=== PATIENT | male | born 1950 | race Caucasian/White ===

== ENCOUNTER 2020-03-26 17:28 | Inpatient (IN) | payer MEDICARE, SELFPAY ==
[2020-03-26] VITALS (7 sets, daily range): BP systolic 117–145; BP diastolic 46–61; PULSE 76–87; RESP 17–23; TEMP 37.8–38.9; O2SAT 96–99; BMI 27.5
--- NOTE | ~2020-03-26 | XR_ITS ---
EXAMINATION: XR chest 1V portable EXAM DATE: 03/26/2020 18:12 INDICATION: Fever, cough, chills. TECHNIQUE: Portable AP frontal chest x-ray was obtained. Comparison is made to prior examination from 09/28/2012. FINDINGS: Sternotomy wires are present without findings to suggest sternal dehiscence. Moderate chron ic appearing hyperinflation. There is some fat within the major fissures confirmed on prior lateral p rojection, probably causing the small region of left hemidiaphragm silhouetting. No acute airspace di sease suspected. There are no pleural effusions. Cardiac silhouette is prominent but magnified on th is AP technique. There is no pneumothorax suspected. The bones and soft tissues are unremarkable. IMPRESSION: No acute cardiopulmonary findings. Reviewed, dictated and finalized at location A.
--- NOTE | 2020-03-26 17:45 | ECG_ITS ---
Measurements Intervals [place] Rate: 79 P: -77 NH: 121 QRS: 40 QRSD: 93 T: 61 QT: 365 QTc: 420 Interpretive Statements ECTOPIC ATRIAL RHYTHM NONSPECIFIC ST & T-WAVE ABNORMALITY- ANTEROLAT/HIGH LAT LEADS BASELINE ARTIFACT- III, V2-V3 ABNORMAL ECG Electronically Signed On 03-27-2020 6:59:41 CDT by Donte Campbell D.O.
[2020-03-26 17:54] LABS: Basophils Absolute Auto 0.1 K/mm3 (0.0-0.1); Basophils Percent Auto 0.3 % (0.2-1.2); Eosinophils Absolute Auto 0.3 K/mm3 (0-0.3); Eosinophils Percent Auto 1.5 % (0-4.4); Hematocrit 44.1 % (42.0-52.0); Hemoglobin 15.4 g/dL (14.0-18.0); Immature Granulocyte Absolute 0.09 K/mm3 (0.00-0.031); Immature Granulocyte Percent A 0.5 % (0-0.5); Lymphocytes Absolute Auto 1.44 K/mm3 (0.9-3.2); Lymphocytes Percent Auto 7.4 % (18.3-44.2); Mean Corpuscular HGB Conc 34.9 g/dl (32-36); Mean Corpuscular Hemoglobin 30.6 pg (26-34); Mean Corpuscular Volume 87.5 fl (80-100); Mean Platelet Volume 10.6 fl (7.4-10.4); Monocytes Percent Auto 10.4 % (2.6-8.5); Neutrophils Absolute Auto 15.6 K/mm3 (1.3-6.7); Neutrophils Percent Auto 79.9 % (45.5-73.1); Platelet Count Result 189 k/mm3 (150-375); Red Blood Count 5.04 M/mm3 (4.6-6.20); Red Cell Distribution Width 13.2 % (11.5-14.5); White Blood Count 19.5 K/mm3 (4.5-10.0)
--- NOTE | 2020-03-26 17:58 | ED.SOB ---
HPI - SOB/Dyspnea General Chief Complaint: Shortness of Breath/Dyspnea Stated Complaint: Fever/Sore Throat/Shaking Time Seen by Provider: 03/26/20 17:34 Source: patient Mode of arrival: ambulatory Limitations: no limitations History of Present Illness HPI Narrative: This patient is a 70 year old male with history of HTN, hyperlipidemia and BPH who presents for evaluation of 3 days ago cough, fever, myalgia and sore throat. He reports his fever was 99F and today he developed a fever of 103. He came to ER for evaluation since his fever was so high. He took tylenol before coming to the ER. He denies sob or chest pain. He also reports severe sore throat . He denies any sick contacts. Related Data Home Medications Medication Instructions Recorded Confirmed aspirin 81 mg PO DAILY 03/26/20 finasteride 5 mg PO DAILY 03/26/20 lisinopril 40 mg PO DAILY 03/26/20 nifedipine 60 mg PO DAILY 03/26/20 rosuvastatin 40 mg PO DAILY 03/26/20 Allergies Allergy/AdvReac Type Severity Reaction Status Date / Time Penicillins Allergy Unknown Verified 05/22/17 14:52 Review of Systems Review of Systems: All systems reviewed & are unremarkable except as noted in HPI and below Constitutional: Constitutional: Reports chills and Reports fever(s) ENT: Reports dysphagia and Reports sore throat Cardiovascular: Cardiovascular: Denies chest pain Respiratory: Respiratory: Reports cough and Denies dyspnea Gastrointestinal: Gastrointestinal: Denies abdominal pain, Denies nausea and Denies vomiting PMFSH Past Medical History Medical History Hyperlipidemia Hypertension Surgical History Surgical History Hx of CABG Family History Family History Mother Family history of malignant neoplasm Social History Social History (Updated 03/26/20 @ 22:01 by Johnson Aviles MD) Smoking status: Current every day smoker Alcohol intake: current Gender identity (if verbalized by the patient): Male Exam Const: General: no acute distress, alert and diaphoretic Orientation/consciousness: patient oriented x3 HENMT: Head: normocephalic and atraumatic Ears: TM's normal bilaterally Face and sinus: face symmetric Mouth: Yes lip normal and Yes Abnormal oral and palatal mucosa present erythematous and white patches Throat: uvula midline and posterior oropharynx abnormal Eyes: Pupils: Equal, round and reactive pupils present EOM: EOMs intact bilaterally Chest: Chest palpation & inspection: normal inspection of the chest Resp: Effort & Inspection: normal respiratory effort and no retractions Auscultation: clear to auscultation bilaterally Cardio: Rate: regular rate Rhythm: regular rhythm Heart sounds: no murmurs GI: GI Palp: Yes Soft to palpation, No Tenderness to palpation present (GI), No Guarding due to palpation present (GI), No Rigid due to palpation and No Hernia present Back/Spine/Pelvis: Back: no CVA tenderness Skin: General skin exam: normal color Rashes: no rashes Neuro: General: patient oriented x3, moves all extremities and CN's II-XI intact bilaterally Psych: Mental Status: mental status grossly normal Course Vital Signs Vital signs: Vital Signs Temperature 100.8 F H 03/26/20 17:33 Pulse Rate 85 03/26/20 17:33 Respiratory Rate 23 H 03/26/20 17:33 Blood Pressure 118/61 03/26/20 17:33 Pulse Oximetry 97 03/26/20 17:33 Temperature 102.0 F H 03/26/20 22:32 Pulse Rate 87 03/26/20 21:13 Respiratory Rate 20 03/26/20 21:13 Blood Pressure 145/59 H 03/26/20 21:13 Pulse Oximetry 96 03/26/20 21:13 MDM - SOB/Dyspnea Lab Data Attestation: I reviewed the patient's lab results. Result diagrams: 03/26/20 17:47 03/26/20 17:47 Labs: Lab Results 03/26/20 03/26/20 03/26/20 Range/Units 1
[2020-03-26 18:06] LABS: INR 1.1; Prothrombin Time 14.3 Seconds (11.1-14.7)
[2020-03-26 18:07] LABS: Lactic Acid Reflex 2.3 mmol/L (0.7-2.1); Partial Thromboplastin Time 33.3 SECONDS (22.3-36.8)
[2020-03-26 18:13] LABS: Alanine Aminotransferase 14 U/L (4-50); Albumin Level 4.1 g/dL (3.5-5.1); Alkaline Phosphatase 83 U/L (38-126); Anion Gap 12 mmol/L (8-16); Aspartate Amino Transferase 17 U/L (17-59); Bilirubin,Total 0.8 mg/dL (0.2-1.3); Blood Urea Nitrogen 11 mg/dL (9-20); Calcium 8.7 mg/dL (8.4-10.2); Carbon Dioxide 21 mmol/L (22-30); Chloride 101 mmol/L (98-107); Estimated CRCL calculation 68 ml/min; Estimated Glomerular Filt Rate > 60; Glucose 152 mg/dL (75-110); Potassium 3.6 mmol/L (3.4-5.0); Sodium 134 mmol/L (137-145)
[2020-03-26 18:15] LABS: NT Pro B Type Natriuretic Pept 416 PG/ML (5-100)
[2020-03-26 18:25] LABS: Add Urine Microscopic? YES; Appearance Urine Cloudy (Clear); Bacteria Urine 1+ /hpf; Bilirubin Urine Negative (Negative); Blood Urine 2+ (Negative); Color Urine Yellow (Yellow); Glucose Urine UA Negative (Negative); Ketones Urine Negative (Negative); Leukocyte Esterase Ur 3+ LEU/UL (Negative); Mucus Urine Rare /lpf; Nitrate Urine Negative (Negative); Protein Urine 1+ mg/dL (Negative); Specific Grav Ur 1.013 (1.001-1.035); Squamous Epithelial Cell Urine Rare /hpf (Few); Urobilinogen Urine Negative mg/dL (<2.0); WBC Urine >75 /hpf
[2020-03-26 18:28] LABS: CRP 21.5 mg/dL (<1.0)
--- NOTE | 2020-03-26 19:16 | PHAR ---
PENICILLIN RASH YEARS AGO OKED [id number]
[2020-03-26] MEDS: FLUCONAZOLE 100 MG TABLET 200 MG PO (19:43)
[2020-03-26] MEDS: LACTATED RINGERS 1,000 ML 999 ML IV CONT (20:05)
[2020-03-26 20:52] LABS: Reflex Lactic Acid Yes or No Add Lactic
--- NOTE | 2020-03-26 21:00 | ADMGEN ---
This patient, Cain Agarwal, was admitted to [facility] Surg Room 325-01. Patient/family oriented to hospital policies and general routines including ID bracelet, bed and alarms, visiting hours, pain management, procedures, bathroom and other care routines, personal items, smoking policy, room service/diet, and visiting hours. Valuables list has been completed. Information on how to activate the Rapid Response Team has been discussed. Patient/Family are encouraged to report perceived risks to care and to ask questions if they do not understand what they are told or what they should do.
--- NOTE | 2020-03-26 21:45 | PM.IMHP ---
H&P: HPI History of Present Illness Date/Time: 03/26/20 21:45 Chief complaint: Sepsis,UTI,PUI COVID Narrative: This is a pleasant 70 year old male who is a tobacco smoker with history of HTN and hyperlipidemia who presented to the hospital with a complaint of three days of cough, fever, sore throat, and malaise. Today he started to develop a fever up to 103 degrees F and mild shortness of breath. He has had a sore throat and has had difficulty swallowing. He denies any sick contacts and apparently his at home is not ill. He denies any chest pain, palpitations, abdominal pain, nausea, vomiting, dysuria, hematuria, diarrhea or rectal bleeding. The patient was evaluated in the ER tonight and found to be severely septic with fever, leukocytosis of 19,500 and an elevated lactic acid of 2.3. Urinalysis was suspicious for a possible UTI. The patient was treated with a one liter RL fluid bolus and given antibiotics. He was swabbed for COVID-19. No other complaints. Review of Systems Review of Systems: All systems reviewed & are unremarkable except as noted in HPI and below PMFSH Past Medical History Medical History Hyperlipidemia Hypertension Surgical History Surgical History Hx of CABG Family History Family History Mother Family history of malignant neoplasm Social History Social History Smoking packs per day: 1 Smoking cigarettes per day: 20.0 Years smoked: 60 Smoking pack-years: 60.00 Smoking status: Heavy tobacco smoker Tobacco type: cigarettes Alcohol intake: former Drinks per week: 10 Substance use: never Gender identity (if verbalized by the patient): Male Spiritual care concerns: No Meds Home Medications and Allergies Home Medications Medication Instructions Recorded Confirmed Type aspirin 81 mg PO DAILY 03/26/20 03/27/20 History finasteride 5 mg PO DAILY 03/26/20 03/27/20 History lisinopril 40 mg PO DAILY 03/26/20 03/27/20 History nifedipine 60 mg PO DAILY 03/26/20 03/27/20 History rosuvastatin 40 mg PO DAILY 03/26/20 03/27/20 History Allergies Allergy/AdvReac Type Severity Reaction Status Date / Time Penicillins Allergy Unknown Verified 05/22/17 14:52 Vital Signs Vital Signs - 24 hr 03/26/20 17:33 03/26/20 17:40 03/26/20 19:01 Temperature 38.2 C H Pulse Rate 85 84 76 Respiratory Rate 23 H 20 Blood Pressure 118/61 117/46 L Pulse Oximetry 97 96 03/26/20 19:31 03/26/20 20:58 Temperature 37.8 C H Pulse Rate 77 84 Respiratory Rate 20 17 Blood Pressure 124/47 L 123/49 L Pulse Oximetry 96 99 Exam Const: General: cooperative, alert, awake, ill appearing and other (coughing++ ) Nutritional Appearance: well nourished Orientation/consciousness: patient oriented x3 HENMT: Head: normal to inspection General nose exam: Normal external nose present Face and sinus: normal facial exam Mouth: Yes Normal oral and palatal mucosa present and No oropharynx normal (thrush++ ) Eyes: Pupils: Equal, round and reactive pupils present EOM: EOMs intact bilaterally Neck: Neck: supple and no JVD Thyroid: thyroid normal Lymphatic: lymphadenopathy not noted Resp: Effort & Inspection: Actively coughing and tachypneic Auscultation: crackles diffuse and rales Cardio: Rate: regular rate Rhythm: regular rhythm Heart sounds: no murmurs GI: Inspection: normal to inspection Auscultation: normal bowel sounds Skin: General skin exam: normal color and no rashes or lesions noted Neuro: General: patient oriented x3 Cranial nerves: Yes CN's II-XII intact bilaterally and Yes Equal, round and reactive pupils present Speech: normal speech Motor exam (neuro): 5/5 motor strength present throughout Sensory Exam: normal sensation Extrem: General: normal
[2020-03-26 21:51] LABS: Lactic Acid 4.1 mmol/L (0.7-2.1)
[2020-03-26] MEDS: LACTATED RINGERS 1,000 ML 100 ML IV CONT (22:30)
[2020-03-26] MEDS: NYSTATIN 100,000 UNITS/ML SUSP 5 ML ORAL.SUSP PO (22:33)
[2020-03-27] VITALS (11 sets, daily range): BP systolic 122–150; BP diastolic 48–68; PULSE 70–84; RESP 16–20; TEMP 36.2–38.5; O2SAT 93–96
[2020-03-27 00:43] LABS: Influenza Control Positive
[2020-03-27 05:42] LABS: Basophils Percent Auto 0.2 % (0.2-1.2); Eosinophils Percent Auto 0.1 % (0-4.4); Hematocrit 38.3 % (42.0-52.0); Hemoglobin 13.4 g/dL (14.0-18.0); Immature Granulocyte Absolute 0.09 K/mm3 (0.00-0.031); Immature Granulocyte Percent A 0.4 % (0-0.5); Lymphocytes Absolute Auto 1.24 K/mm3 (0.9-3.2); Lymphocytes Percent Auto 6.1 % (18.3-44.2); Mean Corpuscular Hemoglobin 30.3 pg (26-34); Mean Corpuscular Volume 86.7 fl (80-100); Mean Platelet Volume 10.3 fl (7.4-10.4); Monocytes Absolute Auto 2.3 K/mm3 (0.1-0.6); Monocytes Percent Auto 11.4 % (2.6-8.5); Neutrophils Absolute Auto 16.5 K/mm3 (1.3-6.7); Neutrophils Percent Auto 81.8 % (45.5-73.1); Platelet Count Result 175 k/mm3 (150-375); Red Blood Count 4.42 M/mm3 (4.6-6.20); Red Cell Distribution Width 12.8 % (11.5-14.5); White Blood Count 20.2 K/mm3 (4.5-10.0)
[2020-03-27] MEDS: ALBUTEROL SULFATE (*SP) AEROSOL 1 PUFF 2 PUFF INHALATION ×4 (07:30→19:37)
[2020-03-27 07:48] LABS: Alanine Aminotransferase 10 U/L (4-50); Albumin Level 3.4 g/dL (3.5-5.1); Alkaline Phosphatase 73 U/L (38-126); Anion Gap 6 mmol/L (8-16); Aspartate Amino Transferase 23 U/L (17-59); Bilirubin,Total 0.6 mg/dL (0.2-1.3); Blood Urea Nitrogen 12 mg/dL (9-20); Calcium 8.2 mg/dL (8.4-10.2); Carbon Dioxide 21 mmol/L (22-30); Chloride 103 mmol/L (98-107); Estimated CRCL calculation 94 ml/min; Estimated Glomerular Filt Rate > 60; Glucose 125 mg/dL (75-110); Potassium 3.7 mmol/L (3.4-5.0); Sodium 130 mmol/L (137-145)
[2020-03-27 08:16] LABS: Lactic Acid Reflex 3.9 mmol/L (0.7-2.1)
[2020-03-27] MEDS: NYSTATIN 100,000 UNITS/ML SUSP 5 ML ORAL.SUSP PO ×4 (09:08→21:11)
[2020-03-27] MEDS: ROSUVASTATIN 10 MG TABLET 40 MG PO (09:09)
[2020-03-27] MEDS: NIFEdipine 30 MG TAB.ER.24 60 MG PO (09:09)
[2020-03-27] MEDS: FINASTERIDE 5 MG TABLET PO (09:10)
[2020-03-27] MEDS: lisinopriL 20 MG TABLET 40 MG PO (09:11)
[2020-03-27 10:59] LABS: Reflex Lactic Acid Yes or No Add Lactic
[2020-03-27] MEDS: ASPIRIN 81 MG ENTERIC TABLET PO (11:05)
[2020-03-27] MEDS: LACTATED RINGERS 1,000 ML 100 ML IV CONT ×2 (11:06→21:11)
[2020-03-27 11:41] LABS: Lactic Acid 0.9 mmol/L (0.7-2.1)
[2020-03-27 14:05] LABS: SARS-CoV-2 RNA PCR Negative
[2020-03-27] MEDS: ALBUTEROL SULFATE (*SP) INHALER 1 PUFF (14:30)
--- NOTE | 2020-03-27 14:32 | PM.IMPN ---
Progress Note: A&P Assessment and Plan (1) Severe sepsis: Code(s): A41.9 - Sepsis, unspecified organism; R65.20 - Severe sepsis without septic shock Status: Acute Assessment and Plan: w/ fever, leukocytosis and elevated lactic acid. Source of sepsis may be respiratory vs. urinary. Lactic acid has resolved. WBC 20.2k. Continues to have low grade fever. Patient feels better today. Monitor Is and Os, urine output. vital signs closely. Continue IV antibiotics for presumed UTI. blood and urine cultures pending. (2) Abnormal urinalysis: Code(s): R82.90 - Unspecified abnormal findings in urine Status: Acute Assessment and Plan: r/o UTI. UA suspicous for UTI. Patient noting dysuria and cloudy urine Continue IV Rocephin Urine culture pending. Tailor antibiotics to culture (3) Leukocytosis: Qualifiers: Leukocytosis type: unspecified Qualified Code(s): D72.829 - Elevated white blood cell count, unspecified Code(s): D72.829 - Elevated white blood cell count, unspecified Status: Acute Assessment and Plan: May be secondary to acute UTI vs. respiratory illness. Monitor CBCd. (4) Suspected COVID-19 virus infection: Code(s): Z20.828 - Contact with and (suspected) exposure to other viral communicable diseases Status: Ruled-out Assessment and Plan: COVID testing negative. D/c droplet isolation. (5) Thrush: Code(s): B37.0 - Candidal stomatitis Status: Acute Assessment and Plan: Evident on exam Nystatin swish and swallow QID. Likely continue 7-14 depending on improvement Monitor closely (6) Hypertension: Qualifiers: Hypertension type: unspecified Qualified Code(s): I10 - Essential (primary) hypertension Code(s): I10 - Essential (primary) hypertension Status: Chronic Assessment and Plan: BP 130s sys this afternoon Continue lisinopril and nifedipine. Monitor (7) Hyperlipidemia: Qualifiers: Hyperlipidemia type: unspecified Qualified Code(s): E78.5 - Hyperlipidemia, unspecified Code(s): E78.5 - Hyperlipidemia, unspecified Status: Chronic Assessment and Plan: LFTs WNL Continue Crestor (8) Prediabetes: Code(s): R73.03 - Prediabetes Status: Acute Assessment and Plan: A1c 6.0; technically prediabetic Will need f/u with PCP Will encourage healthy lifestyle choices including diet and exercise Subjective Date/time seen: 03/27/20 14:32 Interval history: Patient is a 70 yo M with history of current tobacco abuse, HLD, and HTN who is here for severe sepsis with likely respiratory vs urinary source. Patient states he feels better today. Notes that his cough, subjective fever, and SOB have improved. He notes that he is spitting up white stuff particularly when he eats something, stating almost like it gets stuck . He notes his appetite has not been ideal the past week or so given his illness. He notes that he has some dysuria, usually when he wakes up in the morning, then goes away during the day; this as been going on for several days as well. Notes cloudy urine yesterday, but this has improved. No other complaints. Denies current subjective f/c/s, headaches, dizziness, lightheadedness, changes in v/h, cp/palpitations, current SOB, n/v/d/c, abd pain, changes in BMs, hematuria, calf pain/swelling. Review of Systems Review of Systems: All systems reviewed & are unremarkable except as noted in HPI and below Exam Narrative: Exam Narrative: Patient lying in bed supine in in no acute distress Const: General: cooperative, comfortable, well
--- NOTE | 2020-03-27 14:48 | PC.NURSE ---
Aaron GOLDMAN , aware covid test is negative. Isolation discontinued.
[2020-03-28 06:00] VITALS: BP 120/54; PULSE 67; RESP 20; TEMP 37.6; O2SAT 95
[2020-03-28 07:26] LABS: Anion Gap 7 mmol/L (8-16); Blood Urea Nitrogen 9 mg/dL (9-20); Calcium 8.4 mg/dL (8.4-10.2); Carbon Dioxide 23 mmol/L (22-30); Chloride 105 mmol/L (98-107); Estimated CRCL calculation 94 ml/min; Estimated Glomerular Filt Rate > 60; Glucose 126 mg/dL (75-110); Magnesium 2.3 mg/dL (1.6-2.3); Potassium 3.2 mmol/L (3.4-5.0); Sodium 135 mmol/L (137-145)
[2020-03-28] MEDS: LACTATED RINGERS 1,000 ML 100 ML IV CONT ×2 (07:37→20:14)
[2020-03-28] MEDS: ALBUTEROL SULFATE (*SP) AEROSOL 1 PUFF 2 PUFF INHALATION ×2 (08:12→12:11)
[2020-03-28] MEDS: POTASSIUM CHLORIDE 20 MEQ TABLET 60 MEQ PO (09:06)
[2020-03-28] MEDS: ROSUVASTATIN 10 MG TABLET 40 MG PO (09:06)
[2020-03-28] MEDS: lisinopriL 20 MG TABLET 40 MG PO (09:14)
[2020-03-28] MEDS: ENOXAPARIN 40 MG/0.4 ML SYRINGE SUB-Q (09:14)
[2020-03-28] MEDS: FINASTERIDE 5 MG TABLET PO (09:15)
[2020-03-28] MEDS: NYSTATIN 100,000 UNITS/ML SUSP 5 ML ORAL.SUSP PO ×4 (09:15→20:34)
[2020-03-28] MEDS: ASPIRIN 81 MG ENTERIC TABLET PO (09:15)
[2020-03-28] MEDS: NIFEdipine 30 MG TAB.ER.24 60 MG PO (09:15)
[2020-03-28 10:13] LABS: Basophils Absolute Auto 0.1 K/mm3 (0.0-0.1); Basophils Percent Auto 0.3 % (0.2-1.2); Eosinophils Absolute Auto 0.1 K/mm3 (0-0.3); Eosinophils Percent Auto 0.3 % (0-4.4); Hematocrit 38.6 % (42.0-52.0); Hemoglobin 13.2 g/dL (14.0-18.0); Immature Granulocyte Absolute 0.08 K/mm3 (0.00-0.031); Immature Granulocyte Percent A 0.5 % (0-0.5); Lymphocytes Absolute Auto 1.86 K/mm3 (0.9-3.2); Lymphocytes Percent Auto 10.6 % (18.3-44.2); Mean Corpuscular HGB Conc 34.2 g/dl (32-36); Mean Corpuscular Hemoglobin 29.9 pg (26-34); Mean Corpuscular Volume 87.5 fl (80-100); Mean Platelet Volume 11.4 fl (7.4-10.4); Monocytes Absolute Auto 2.3 K/mm3 (0.1-0.6); Monocytes Percent Auto 12.9 % (2.6-8.5); Neutrophils Absolute Auto 13.3 K/mm3 (1.3-6.7); Neutrophils Percent Auto 75.4 % (45.5-73.1); Platelet Count Result 200 k/mm3 (150-375); Red Blood Count 4.41 M/mm3 (4.6-6.20); Red Cell Distribution Width 13.2 % (11.5-14.5); White Blood Count 17.6 K/mm3 (4.5-10.0)
--- NOTE | 2020-03-28 14:47 | PM.IMPN ---
Progress Note: A&P Assessment and Plan (1) Severe sepsis: Code(s): A41.9 - Sepsis, unspecified organism; R65.20 - Severe sepsis without septic shock Status: Acute Assessment and Plan: w/ fever, leukocytosis and elevated lactic acid. Source of sepsis may be respiratory vs. urinary. Lactic acid has resolved. WBC 17.6k. Afebrile since yesterday evening. Significant clinical improvement. blood and urine cultures NGTD x 2 after 2 days. UCx shows growth of strep viridans, although patient has noticed significant improvement in his urinary symptoms. Respiratory symptoms have also improved. Monitor for improvement Continue IV antibiotics for presumed UTI and/or CAP Consider discharge in 1-2 days on PO antibiotics if continued clinical improvement (2) CAP (community acquired pneumonia): Code(s): J18.9 - Pneumonia, unspecified organism Status: Acute Assessment and Plan: CXR unremarkable for acute cardiopulmonary findings, however, exam suggestive of pneumonia on right side. He has shown improvement in respiratory symptoms. Will add azithromycin to Rocephin to empirically treat CAP Add Mucinex to regimen Monitor for improvement (3) Abnormal urinalysis: Code(s): R82.90 - Unspecified abnormal findings in urine Status: Acute Assessment and Plan: UA and history suspicious for UTI, however UCx shows growth of strep viridans. Patient noting significant improvement in symptoms with IV antibiotics Continue IV Rocephin for empiric treatment of UTI (4) Leukocytosis: Qualifiers: Leukocytosis type: unspecified Qualified Code(s): D72.829 - Elevated white blood cell count, unspecified Code(s): D72.829 - Elevated white blood cell count, unspecified Status: Acute Assessment and Plan: May be secondary to acute UTI vs. CAP. Improving Monitor CBCd. (5) Thrush: Code(s): B37.0 - Candidal stomatitis Status: Acute Assessment and Plan: Evident on exam. Patient has noticed significant improvement in his dysphagia. Nystatin swish and swallow QID. Likely continue 7-14 depending on improvement Monitor closely (6) Hypertension: Qualifiers: Hypertension type: unspecified Qualified Code(s): I10 - Essential (primary) hypertension Code(s): I10 - Essential (primary) hypertension Status: Chronic Assessment and Plan: BP 120s sys this afternoon Continue lisinopril and nifedipine. Monitor (7) Hyperlipidemia: Qualifiers: Hyperlipidemia type: unspecified Qualified Code(s): E78.5 - Hyperlipidemia, unspecified Code(s): E78.5 - Hyperlipidemia, unspecified Status: Chronic Assessment and Plan: LFTs WNL Continue Crestor (8) Prediabetes: Code(s): R73.03 - Prediabetes Status: Acute Assessment and Plan: A1c 6.0; technically prediabetic Will need f/u with PCP. Discussed this in detail with patient and during stay Encouraged healthy lifestyle choices including diet and exercise Subjective Date/time seen: 03/28/20 14:47 Interval history: Patient is a 70 yo M with history of current tobacco abuse, HLD, and HTN who is here for severe sepsis with likely respiratory vs urinary source. Patient states he feels [facility] better today. His cough and SOB has improved. His dysphagia has also improved and he has gotten his appetite back. He denies any subjective fevers today. He also notes some lower abdomen pressure has improved significantly since starting the antibiotics. He thinks his urine has cleared up significantly as well. No other complaints. Denies current subjective f/c/s
[2020-03-28 15:18] VITALS: BP 130/54; PULSE 75; RESP 14; TEMP 37.5; O2SAT 97
[2020-03-28] MEDS: guaiFENesin 12 HR 600 MG TABCR PO (20:34)
[2020-03-28 22:00] VITALS: BP 119/47; PULSE 70; RESP 16; TEMP 37.2; O2SAT 99
[2020-03-29 06:00] VITALS: BP 109/68; PULSE 63; RESP 16; TEMP 36.6; O2SAT 97
[2020-03-29] MEDS: LACTATED RINGERS 1,000 ML 100 ML IV CONT (06:05)
[2020-03-29 07:15] LABS: Basophils Absolute Auto 0.1 K/mm3 (0.0-0.1); Basophils Percent Auto 0.4 % (0.2-1.2); Eosinophils Absolute Auto 0.2 K/mm3 (0-0.3); Hematocrit 36.7 % (42.0-52.0); Hemoglobin 12.6 g/dL (14.0-18.0); Immature Granulocyte Percent A 0.9 % (0-0.5); Lymphocytes Absolute Auto 1.94 K/mm3 (0.9-3.2); Lymphocytes Percent Auto 16.9 % (18.3-44.2); Mean Corpuscular HGB Conc 34.3 g/dl (32-36); Mean Corpuscular Hemoglobin 29.9 pg (26-34); Mean Platelet Volume 10.4 fl (7.4-10.4); Monocytes Absolute Auto 1.4 K/mm3 (0.1-0.6); Neutrophils Absolute Auto 7.8 K/mm3 (1.3-6.7); Neutrophils Percent Auto 67.8 % (45.5-73.1); Platelet Count Result 213 k/mm3 (150-375); Red Blood Count 4.22 M/mm3 (4.6-6.20); Red Cell Distribution Width 13.2 % (11.5-14.5); White Blood Count 11.5 K/mm3 (4.5-10.0)
[2020-03-29 07:29] LABS: Anion Gap 5 mmol/L (8-16); Blood Urea Nitrogen 7 mg/dL (9-20); Calcium 8.2 mg/dL (8.4-10.2); Carbon Dioxide 23 mmol/L (22-30); Chloride 109 mmol/L (98-107); Estimated CRCL calculation 108 ml/min; Estimated Glomerular Filt Rate > 60; Glucose 110 mg/dL (75-110); Magnesium 2.3 mg/dL (1.6-2.3); Potassium 3.7 mmol/L (3.4-5.0); Sodium 137 mmol/L (137-145)
[2020-03-29] MEDS: lisinopriL 20 MG TABLET 40 MG PO (08:30)
[2020-03-29] MEDS: ASPIRIN 81 MG ENTERIC TABLET PO (08:30)
[2020-03-29] MEDS: guaiFENesin 12 HR 600 MG TABCR PO (08:30)
[2020-03-29] MEDS: NYSTATIN 100,000 UNITS/ML SUSP 5 ML ORAL.SUSP PO (08:30)
[2020-03-29] MEDS: ENOXAPARIN 40 MG/0.4 ML SYRINGE SUB-Q (08:30)
[2020-03-29] MEDS: ROSUVASTATIN 10 MG TABLET 40 MG PO (08:30)
[2020-03-29] MEDS: FINASTERIDE 5 MG TABLET PO (08:30)
[2020-03-29] MEDS: NIFEdipine 30 MG TAB.ER.24 60 MG PO (08:31)
--- NOTE | 2020-03-29 09:15 | PM.DS ---
DS: Admitting Diagnosis Admitting Diagnosis Admitting Diagnosis: Sepsis,UTI,PUI COVID DS: Discharge Diagnosis Discharge Diagnosis (1) Severe sepsis: Code(s): A41.9 - Sepsis, unspecified organism; R65.20 - Severe sepsis without septic shock Status: Acute Assessment and Plan: w/ fever, leukocytosis and elevated lactic acid. Source of sepsis may be respiratory vs. urinary. Lactic acid has resolved. WBC 11.5k. Afebrile since 03/27. Significant clinical improvement. blood and urine cultures NGTD x 2 after 2 days. UCx shows growth of strep viridans, although patient has noticed significant improvement in his urinary symptoms. Patient has had significant clinical improvement over the past 2 nights. Feels much better today and states he has slept better than he has had in years. Monitor for improvement Start PO antibiotics for presumed UTI and/or CAP. See below D/c today (2) CAP (community acquired pneumonia): Code(s): J18.9 - Pneumonia, unspecified organism Status: Acute Assessment and Plan: CXR unremarkable for acute cardiopulmonary findings, however, exam suggestive of pneumonia on right side. He has shown improvement in respiratory symptoms again today Will do azithromycin PO daily and PO cefdinir both through 04/01 to treat suspected CAP Instructed him to continue taking OTC Mucinex after discahrge F/u with PCP (3) Acute UTI: Code(s): N39.0 - Urinary tract infection, site not specified Status: Acute Assessment and Plan: UA and history suspicious for UTI, however UCx shows growth of strep viridans. Patient noting significant improvement in urinary symptoms with antibiotics since admission Will do Cefdinir through 04/01 to treat suspected UTI F/u with PCP (4) Leukocytosis: Qualifiers: Leukocytosis type: unspecified Qualified Code(s): D72.829 - Elevated white blood cell count, unspecified Code(s): D72.829 - Elevated white blood cell count, unspecified Status: Acute Assessment and Plan: May be secondary to acute UTI vs. CAP. Improving to 11.5k today Monitor CBC in 1 week F/u with PCP (5) Thrush: Code(s): B37.0 - Candidal stomatitis Status: Acute Assessment and Plan: Evident on exam. Patient has noticed significant improvement in his dysphagia again today. Also has gotten his appetite back Nystatin swish and swallow QID through 04/08 or until specified by PCP F/u with PCP in 1 week Consider GI referral if not improveing (6) Hypertension: Qualifiers: Hypertension type: unspecified Qualified Code(s): I10 - Essential (primary) hypertension Code(s): I10 - Essential (primary) hypertension Status: Chronic Assessment and Plan: BP 100s sys this morning Continue lisinopril and nifedipine. Monitor (7) Hyperlipidemia: Qualifiers: Hyperlipidemia type: unspecified Qualified Code(s): E78.5 - Hyperlipidemia, unspecified Code(s): E78.5 - Hyperlipidemia, unspecified Status: Chronic Assessment and Plan: LFTs WNL Continue Crestor (8) Prediabetes: Code(s): R73.03 - Prediabetes Status: Acute Assessment and Plan: A1c 6.0; technically prediabetic Will need f/u with PCP. Discussed this in detail with patient and during stay Encouraged healthy lifestyle choices including diet and exercise DS: Summary Hospital Course Reason for hospitalization: Severe sepsis; CAP, UTI, thrush Hospital Course: Patient is a 70 yo M with history of tobacco abuse, HTN and hyperlipidemia who presented to the hospital on 03/26 with a complaint of three days of cough,
[2020-03-29] MEDS: AZITHROMYCIN 250 MG TABLET PO (10:23)
== END 2020-03-29 10:50 | disposition home or self-care (01) | DRG 871 ==
LOC: ANHED 19:57 → ANH3MEDSUR 03-27 03:20
PROVIDERS: Admitting Provider Family Medicine; Emergency Provider General Practice; PCP Family Medicine; Visit Provider Physician Assistant
DX: A41.9 Sepsis, unspecified organism (principal); J18.9 Pneumonia, unspecified organism; N39.0 Urinary tract infection, site not specified; B37.0 Candidal stomatitis; R65.20 Severe sepsis without septic shock; B95.4 Other streptococcus as the cause of diseases classified elsewhere; Z20.828 Contact with and (suspected) exposure to other viral communicable diseases; N40.0 Benign prostatic hyperplasia without lower urinary tract symptoms; I10 Essential (primary) hypertension; R73.03 Prediabetes; E78.5 Hyperlipidemia, unspecified; F17.210 Nicotine dependence, cigarettes, uncomplicated; Z95.1 Presence of aortocoronary bypass graft
CPT/HCPCS: 36415; 71045; 80048; 80053; 81001; 83036; 83605; 83735; 83880; 85025; 85610; 85730; 86140; 87040; 87077; 87081; 87086; 87088; 87635; 87804; 87880; 93005; 94640; 96374; 99285; A9270; C9803; J0131; J0456; J0696; J1650; J7120; U0003

== ENCOUNTER 2020-09-23 16:13 | Outpatient (CLI) | payer MEDICARE, SELFPAY | END 2020-09-23 16:14 | disposition home or self-care (01) | LOC: ANHCOVIDVC 16:13 | PROVIDERS: PCP Family Medicine | DX: Z23 Encounter for immunization (principal) | CPT/HCPCS: 0001A; 91300 ==

== ENCOUNTER 2020-10-14 16:12 | Outpatient (CLI) | payer MEDICARE, OTHER, SELFPAY | END 2020-10-14 16:13 | disposition home or self-care (01) | LOC: ANHCOVIDVC 16:12 | PROVIDERS: PCP Family Medicine | DX: Z23 Encounter for immunization (principal) | CPT/HCPCS: 0002A; 91300 ==

== ENCOUNTER 2021-01-08 14:57 | Outpatient (CLI) | payer MEDICARE, SELFPAY ==
--- NOTE | ~2021-01-08 | CT_ITS ---
EXAMINATION:CT lung screening DATE: 01/08/2021 15:12 INDICATION: Personal history of tobacco dependence. Current smoker with 60 pack year history. TECHNIQUE: Computed tomography (CT) of the chest was performed without intravenous contrast. Automate d exposure control and iterative reconstruction technique were employed. The dose-length product (DLP ) was 207.19 mGy-cm. COMPARISON: Chest single view 03/26/2020 FINDINGS: There is mild emphysema. There is mild scarring at the lung apices. A calcified right lung nodule and calcified right hilar lymph nodes are consistent with old granulomatous disease. No pleura l effusion. Cardiomegaly is noted. There are coronary artery calcifications. There are changes of cor onary artery bypass grafting. No pericardial effusion. There is a gallstone in the gallbladder, which is normal in size. There are bridging endplate osteophytes at multiple levels in the spine, consiste nt with diffuse idiopathic skeletal hyperostosis (DISH). IMPRESSION: 1. Lung-RADS category 1: Negative. Continue annual screening with noncontrast low-dose chest CT in 12 months. Reviewed, dictated and finalized at location A. IMPRESSION: 1. Lung-RADS category 1: Negative. Continue annual screening with noncontrast l ow-dose chest CT in 12 months.
== END 2021-01-08 14:58 | disposition home or self-care (01) ==
PROVIDERS: PCP Nurse Practitioner Family; Visit Provider Nurse Practitioner Family
DX: Z12.2 Encounter for screening for malignant neoplasm of respiratory organs (principal); F17.210 Nicotine dependence, cigarettes, uncomplicated
CPT/HCPCS: 71271

== ENCOUNTER 2021-01-20 01:02 | Day surgery (SDC) | payer MEDICARE, SELFPAY ==
[2021-01-05 13:08] VITALS: BMI 25.4
[2021-01-20] MEDS: LACTATED RINGERS 1,000 ML 150 ML IV CONT (07:26)
[2021-01-20 07:30] VITALS: BP 154/51; PULSE 76; RESP 18; TEMP 36.6; O2SAT 96; BMI 24.7
--- NOTE | 2021-01-20 07:58 | WPDANESEPPF ---
Anes - Initial Pre Proc Eval Procedure: Operation Date: 01/20/21 08:30 Proposed Procedures p Screening Colonoscopy - Carl Juarez MD Date/Time: 01/20/21 07:58 Surgeon: Calr Juarez MD Pre Op Diagnosis: neoplasm screening Patient Data Age: 71 Gender: M Height: 1.88 m Weight: 87.3 kg Last Vital Signs Temp 97.8 F 01/20/21 07:30 Pulse 76 01/20/21 07:30 Resp 18 01/20/21 07:30 BP 154/51 H 01/20/21 07:30 Pulse Ox 96 01/20/21 07:30 Allergies Allergy/AdvReac Type Severity Reaction Status Date / Time Penicillins Allergy Unknown Hives Verified 01/20/21 07:29 Home Medications Medication Instructions Recorded Confirmed Type aspirin 81 mg PO DAILY 03/26/20 01/13/21 History finasteride [Proscar] 5 mg PO DAILY 03/26/20 01/13/21 History lisinopril 40 mg PO DAILY 03/26/20 01/13/21 History rosuvastatin 40 mg PO DAILY 03/26/20 01/13/21 History nifedipine 30 mg tablet,extended 60 mg PO QPM 10/05/20 01/13/21 History release 24 hr nystatin 100,000 unit/mL oral 5 ml PO QID 14 Days #280 ml 01/04/21 01/13/21 Rx suspension acetaminophen 500 mg tablet 500 mg PO Q6H PRN 01/08/21 01/13/21 History Patient hx anesthesia problems: none Family hx anesthesia problems: none PMFSH Past Medical History Medical History Acute bronchitis (~2018) BMI 26.0-26.9,adult Bradycardia (~2018) CAD (coronary artery disease) CAP (community acquired pneumonia) Colon cancer screening Encounter to establish care Epidermoid cyst of neck History of heart attack Hyperlipidemia Hypertension Leukocytosis Localized swelling, mass and lump, neck Nocturia Osteoarthritis Sepsis Small vessel coronary artery disease Smoking greater than 40 pack years Thrush, oral Surgical History Surgical History H/O shoulder surgery History of appendectomy History of cataract extraction History of vasectomy reversal Hx of CABG (~05/2008) Hx of total knee arthroplasty Family History Family History Mother Family history of malignant neoplasm Social History Social History Smoking packs per day: 1 Smoking cigarettes per day: 20.0 Years smoked: 60 Smoking pack-years: 60.00 Smoking status: Current every day smoker Tobacco type: cigarettes Alcohol intake: current Drinks per week: 2 Substance use: never Substance use type: does not use Living arrangements: with family Gender identity (if verbalized by the patient): Male Spiritual care concerns: No Anes - Eval Final PreProcedure Day of Procedure 01/20/21 07:58 Patient weight: overweight Heart: regular rate and rhythm Lungs: clear to auscultation Airway: Mallampati scale class II Neurological: alert and oriented Last oral intake: >/= 8 hours ASA classification: III Emergent: no Anesthetic plan: proceed Anesthesia type and monitoring: general GIVS and standard monitoring Informed Consent: The patient's anesthetic plan and its attendant risks and benefits were discussed with the patient/family/POA. Questions were solicited and answers provided to the satisfaction of the patient/family/POA.
--- NOTE | 2021-01-20 08:15 | PM.HPGS ---
History of Present Illness History of Present Illness Consent: Risks, benefits, and alternatives have been discussed and questions answered. Patient agrees to proceed with procedure. Chief complaint: neoplasm screening Narrative: Cain Agarwal is a 71 year old male referred for colon cancer screening. Review of Systems Review of Systems: All systems reviewed & are unremarkable except as noted in HPI and below PMFSH Past Medical History Medical History Acute bronchitis (~2018) BMI 26.0-26.9,adult Bradycardia (~2018) CAD (coronary artery disease) CAP (community acquired pneumonia) Colon cancer screening Encounter to establish care Epidermoid cyst of neck History of heart attack Hyperlipidemia Hypertension Leukocytosis Localized swelling, mass and lump, neck Nocturia Osteoarthritis Sepsis Small vessel coronary artery disease Smoking greater than 40 pack years Thrush, oral Surgical History Surgical History H/O shoulder surgery History of appendectomy History of cataract extraction History of vasectomy reversal Hx of CABG (~05/2008) Hx of total knee arthroplasty Family History Family History Mother Family history of malignant neoplasm Social History Social History Smoking packs per day: 1 Smoking cigarettes per day: 20.0 Years smoked: 60 Smoking pack-years: 60.00 Smoking status: Current every day smoker Tobacco type: cigarettes Alcohol intake: current Drinks per week: 2 Substance use: never Substance use type: does not use Living arrangements: with family Gender identity (if verbalized by the patient): Male Spiritual care concerns: No Meds Home Medications and Allergies Home Medications Medication Instructions Recorded Confirmed Type aspirin 81 mg PO DAILY 03/26/20 01/13/21 History finasteride [Proscar] 5 mg PO DAILY 03/26/20 01/13/21 History lisinopril 40 mg PO DAILY 03/26/20 01/13/21 History rosuvastatin 40 mg PO DAILY 03/26/20 01/13/21 History nifedipine 30 mg tablet,extended 60 mg PO QPM 10/05/20 01/13/21 History release 24 hr nystatin 100,000 unit/mL oral 5 ml PO QID 14 Days #280 ml 01/04/21 01/13/21 Rx suspension acetaminophen 500 mg tablet 500 mg PO Q6H PRN 01/08/21 01/13/21 History Allergies Allergy/AdvReac Type Severity Reaction Status Date / Time Penicillins Allergy Unknown Hives Verified 01/20/21 07:29 Vital Signs Vital Signs - 24 hr 01/20/21 07:30 Temperature 36.6 C Pulse Rate 76 Respiratory Rate 18 Blood Pressure 154/51 H Pulse Oximetry 96 Exam Resp: Auscultation: clear to auscultation bilaterally Cardio: Rate: regular rate Rhythm: regular rhythm GI: GI Palp: Yes Soft to palpation and No Tenderness to palpation present (GI) Assessment and Plan Assessment and plan (1) Colon cancer screening: Code(s): Z12.11 - Encounter for screening for malignant neoplasm of colon Status: Acute Assessment and Plan: Colonoscopy with possible biopsy or polypectomy or cautery or injection of substances.
[2021-01-20] MEDS: SIMETHICONE ORAL SUSPENSION 20 MG/0.3 ML 30 ML BOTTLE 0.6 ML IRRIGATION (08:40)
[2021-01-20 08:52] VITALS: BP 129/55; PULSE 38; RESP 19; O2SAT 96
[2021-01-20 09:02] VITALS: BP 134/49; PULSE 39; RESP 19; O2SAT 96
[2021-01-20 09:12] VITALS: BP 146/65; PULSE 40; RESP 16; O2SAT 97
== END 2021-01-20 09:25 | disposition home or self-care (01) ==
PROVIDERS: PCP Nurse Practitioner Family; Visit Provider Internal Medicine Gastroenterology
PROC: 0DJD8ZZ Inspection of Lower Intestinal Tract, Via Natural or Artificial Opening Endoscopic (ICD-10-PCS; CPT 45378; principal; 2021-01-20 08:30)
DX: Z12.11 Encounter for screening for malignant neoplasm of colon (principal); K57.30 Diverticulosis of large intestine without perforation or abscess without bleeding; D12.3 Benign neoplasm of transverse colon; D12.0 Benign neoplasm of cecum; I25.10 Atherosclerotic heart disease of native coronary artery without angina pectoris; I10 Essential (primary) hypertension; E78.5 Hyperlipidemia, unspecified; I25.2 Old myocardial infarction; Z79.82 Long term (current) use of aspirin; Z95.1 Presence of aortocoronary bypass graft; F17.210 Nicotine dependence, cigarettes, uncomplicated
CPT/HCPCS: 45380; 45385; 88305; J2704; J7120

== ENCOUNTER 2021-01-21 01:56 | Day surgery (SDC) | payer MEDICARE, SELFPAY ==
[2021-01-13 14:10] VITALS: BMI 25.4
--- NOTE | 2021-01-21 07:56 | WPDANESEPPF ---
Anes - Initial Pre Proc Eval Procedure: Operation Date: 01/21/21 10:30 Proposed Procedures p Excisional Biopsy Right Posterior Neck Mass - Juliana Valentine MD Date/Time: 01/21/21 07:56 Surgeon: Juliana Valentine MD Pre Op Diagnosis: right posterior neck mass Patient Data Age: 71 Gender: M Height: 1.88 m Weight: 89.85 kg Allergies Allergy/AdvReac Type Severity Reaction Status Date / Time Penicillins Allergy Unknown Hives Verified 01/21/21 10:17 Home Medications Medication Instructions Recorded Confirmed Type aspirin 81 mg PO DAILY 03/26/20 01/13/21 History finasteride [Proscar] 5 mg PO DAILY 03/26/20 01/13/21 History lisinopril 40 mg PO DAILY 03/26/20 01/13/21 History rosuvastatin 40 mg PO DAILY 03/26/20 01/13/21 History nifedipine 30 mg tablet,extended 60 mg PO QPM 10/05/20 01/13/21 History release 24 hr nystatin 100,000 unit/mL oral 5 ml PO QID 14 Days #280 ml 01/04/21 01/13/21 Rx suspension acetaminophen 500 mg tablet 500 mg PO Q6H PRN 01/08/21 01/13/21 History Patient hx anesthesia problems: none Family hx anesthesia problems: none PMFSH Past Medical History Medical History Acute bronchitis (~2018) BMI 26.0-26.9,adult Bradycardia (~2018) CAD (coronary artery disease) CAP (community acquired pneumonia) Colon cancer screening Encounter to establish care Epidermoid cyst of neck History of heart attack Hyperlipidemia Hypertension Leukocytosis Localized swelling, mass and lump, neck Nocturia Osteoarthritis Sepsis Small vessel coronary artery disease Smoking greater than 40 pack years Thrush, oral Surgical History Surgical History H/O shoulder surgery History of appendectomy History of cataract extraction History of vasectomy reversal Hx of CABG (~05/2008) Hx of total knee arthroplasty Family History Family History Mother Family history of malignant neoplasm Social History Social History Smoking packs per day: 1 Smoking cigarettes per day: 20.0 Years smoked: 60 Smoking pack-years: 60.00 Smoking status: Current every day smoker Tobacco type: cigars Alcohol intake: former Drinks per week: 10 Substance use: never Substance use type: does not use Living arrangements: with family Gender identity (if verbalized by the patient): Male Spiritual care concerns: No Anes - Eval Final PreProcedure Day of Procedure 01/21/21 07:56 Patient weight: overweight Heart: regular rate and rhythm Lungs: clear to auscultation and normal air movement Airway: Mallampati scale class II Neurological: alert and oriented Last oral intake: >/= 8 hours ASA classification: III Emergent: no Anesthetic plan: proceed Anesthesia type and monitoring: general GIVS and standard monitoring Informed Consent: The patient's anesthetic plan and its attendant risks and benefits were discussed with the patient/family/POA. Questions were solicited and answers provided to the satisfaction of the patient/family/POA.
[2021-01-21] MEDS: LACTATED RINGERS 1,000 ML 30 ML IV CONT (10:40)
[2021-01-21 10:41] VITALS: BP 156/53; PULSE 48; TEMP 36.1; O2SAT 95
--- NOTE | 2021-01-21 10:49 | WPDHPUPDATE1 ---
History and Physical Update Update Date/Time: 01/21/21 10:49 History and Physical has been reviewed, including an updated exam of the patient. There are NO changes in the patient's condition. Risks, benefits, and alternatives have been discussed and questions answered. Patient agrees to proceed with procedure.
[2021-01-21] MEDS: CLINDAMYCIN 900 MG/D5W 50 ML 900 MG/50 ML PIGGYBACK 50 MG IVPB (11:08)
[2021-01-21] MEDS: BUPIVACAINE/EPINEPHRINE 0.5% 10 ML VIAL 16 ML INFILTRATE (11:38)
[2021-01-21 11:58] VITALS: BP 97/35; PULSE 45; RESP 16; O2SAT 99
--- NOTE | 2021-01-21 12:07 | W.PM.PROC2 ---
Procedure Note - Detailed Date of Procedure 01/21/21 Pre-op Diagnosis right posterior neck mass/cyst Post-op Diagnosis same Procedure Performed Excisional biopsy right posterior neck cyst measuring approximate 4 x 4 cm Surgeon Juliana Valentine MD Anesthesia MAC and local Indications 71-year-old male presenting to the office with a cystic mass of his right posterior neck. The patient reports the mass has been growing in size and had been infected last year. Findings Ruptured sebaceous cyst right posterior neck measuring 4 x 4 cm Description of Procedure The patient was taken operating room placed in the lateral position. After adequate induction of MAC anesthesia, the patient was prepped and draped in the normal sterile fashion. A time-out was then done to verify the patient's identity, as well as the procedure being performed. I then localized the area in and around this cystic mass in the right posterior neck. This was noted to measure approximately 4 x 4 cm. I then made an incision over this cystic mass and upon getting through the dermis it was noted that this was a large sebaceous cyst. It was noted to be rupture of the cyst at the area of previous drainage. I then bluntly dissected around this cyst and was able to remove this in full. No signs and symptoms of active infection was noted. After the cyst was completely removed, I copiously irrigated the cavity with normal saline. I then closed the subcutaneous tissue with 3 0 Vicryl suture. Skin was closed with 4 Monocryl subcuticular suture. Dermabond was then placed on the wound. The patient tolerated the procedure well and was alert and awake in the operating room postop. He will be sent to the recovery room in stable condition. Estimated Blood Loss 5 Drains No Packing No Pathology yes Complications No immediate complications Condition stable Disposition PACU
[2021-01-21 12:25] VITALS: BP 146/47; PULSE 42; RESP 16; O2SAT 99
[2021-01-21 12:50] VITALS: BP 153/52; PULSE 50; RESP 14
== END 2021-01-21 13:08 | disposition home or self-care (01) ==
PROVIDERS: PCP Nurse Practitioner Family; Visit Provider Surgery
PROC: (CPT 11426; principal; 2021-01-21 10:30)
DX: L72.0 Epidermal cyst (principal); I25.10 Atherosclerotic heart disease of native coronary artery without angina pectoris; I10 Essential (primary) hypertension; E78.5 Hyperlipidemia, unspecified; I25.2 Old myocardial infarction; Z95.1 Presence of aortocoronary bypass graft; Z79.82 Long term (current) use of aspirin; F17.210 Nicotine dependence, cigarettes, uncomplicated
CPT/HCPCS: 11426; 12042; 88305; J2250; J2405; J2704; J3010; J7120

== ENCOUNTER 2021-10-05 08:26 | Outpatient (CLI) | payer MEDICARE, SELFPAY ==
--- NOTE | ~2021-10-05 | US_ITS ---
EXAMINATION: US art doppler w karma PEARSON EXAM DATE: 10/05/2021 09:16 INDICATION: PVD TECHNIQUE: Segmental pressures and plethysmographic and Doppler waveforms of the brachial and lower e xtremity arteries were obtained. Comparison is made to prior examination from 08/15/1969. FINDINGS: Right and left brachial artery pressures of 157 mm Hg and 164 mm Hg, respectively, are concordant (no rmal difference <= 30 mmHg). Incidental note made of arrhythmia, premature contraction, probably VPC. RIGHT LEG: The ankle-brachial index (JEFFERY) is 1.07 (normal >= 0.9-1). The great toe-brachial index (TBI) is 0.87 (normal >= 0.65). The lower extremity ratios, segmental pressure gradients as follows; Proximal superficial femoral artery:- Could not obtain ( mmHg). Distal superficial femoral artery: ----- 1.24 (204 mmHg). Popliteal: 1.25 (205 mmHg). Dorsalis pedis: 0.96 (158 mmHg). Posterior tibial: 1.07 (175 mmHg). (Normal gradients <= 20-30 mmHg between adjacent levels on the same leg or the same levels on the two legs). Arterial waveforms are biphasic. LEFT LEG: The ankle-brachial index (JEFFERY) is 0.90 (normal >= 0.9-1). The great toe-brachial index (TBI) is 0.66 (normal >= 0.65). The lower extremity ratios, segmental pressure gradients as follows; Proximal superficial femoral artery:- Could not obtain ( mmHg). Distal superficial femoral artery: ----- 1.12 (184 mmHg). Popliteal: 1.03 (169 mmHg). Dorsalis pedis: 0.85 (140 mmHg). Posterior tibial: 0.90 (148 mmHg). (Normal gradients <= 20-30 mmHg between adjacent levels on the same leg or the same levels on the two legs). Arterial waveforms are biphasic through popliteal, monophas ic below. IMPRESSION: 1. Right ankle-brachial index 1.07, normal. 2. Left ankle-brachial index 0.90, normal. 3. Segmental pressures as above. 4. Occasional arrhythmia probably VPC, but could correlate with EKG. Reviewed, dictated and finalized at location G.
== END 2021-10-05 08:27 | disposition home or self-care (01) ==
LOC: ANHIMG 08:29
PROVIDERS: PCP Nurse Practitioner Family; Visit Provider Podiatrist Foot & Ankle Surgery
DX: I70.203 Unspecified atherosclerosis of native arteries of extremities, bilateral legs (principal)
CPT/HCPCS: 93923

== ENCOUNTER → 2022-10-11 11:56 | Outpatient (CLI) | payer MEDICARE, SELFPAY ==
--- NOTE | ~2022-10-11 | XR_ITS ---
XR elbow LT min 3V DATE: 10/11/2022 12:08 INDICATION: Left elbow pain. Patient fell and stabbed himself of the screwdriver TECHNIQUE: 4 views COMPARISON: None FINDINGS: Very prominent dorsal olecranon process spur. No fracture or dislocation or joint effusion, periosteal reaction or bone destruction is detected. Th ere is mild degenerative spurring of the coronoid process of the ulna. Multiple sol or surgical clips are noted in the proximal anterior forearm near the antecubital fo ssa. IMPRESSION: No fracture or dislocation or joint effusion Prominent posterior olecranon process spur Reviewed, dictated and finalized at location L.
== END ==
PROVIDERS: PCP Family Medicine; Visit Provider Nurse Practitioner Family
DX: M25.522 Pain in left elbow (principal)
CPT/HCPCS: 73080

== ENCOUNTER 2023-04-28 16:20 | Emergency (ER) | payer MEDICARE, OTHER, SELFPAY ==
--- NOTE | 2023-04-28 16:32 | ED.WOUNDLAC ---
HPI - Wound/Laceration General Chief Complaint: Animal Bite Stated Complaint: Dog Bite on Nose Source: patient, family and RN notes reviewed History of Present Illness HPI narrative: 73 yo M presents to urgent care with at side. 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 Pt states he was helping the dog get into the car when it bit his nose. The dog's shots are UTD. Pt unsure on his last tetanus. Pt denies any other wounds or complaints. Related Data Home Medications Medication Instructions Recorded Confirmed aspirin 81 mg tablet,delayed 81 mg PO DAILY 03/26/20 04/28/23 release finasteride 5 mg tablet (Proscar) 5 mg PO DAILY 03/26/20 04/28/23 lisinopril 40 mg tablet 40 mg PO DAILY 03/26/20 04/28/23 rosuvastatin 40 mg tablet 40 mg PO DAILY 03/26/20 04/28/23 nifedipine 30 mg tablet,extended 60 mg PO QPM 10/05/20 04/28/23 release 24 hr (Procardia XL) acetaminophen 500 mg tablet 500 mg PO Q6H PRN Pain 01/08/21 04/28/23 (Tylenol Extra Strength) Allergies Allergy/AdvReac Type Severity Reaction Status Date / Time Penicillins Allergy Unknown Hives Verified 04/28/23 16:38 Review of Systems Review of Systems: CONSTITUTIONAL: Denies fever, chills, or sweats. EYES: Denies visual changes, redness, or discharge. ENT: Denies otalgia and sore throat CARDIOVASCULAR: Denies chest pain, palpitations, or edema. RESPIRATORY: Denies cough or dyspnea. GASTROINTESTINAL: Denies abdominal pain, nausea, vomiting, or diarrhea. GENITOURINARY: Denies dysuria or hematuria. SKIN: laceration to nose MUSCULOSKELETAL: Denies back pain, joint pain, or myalgia. NEUROLOGIC: Denies headache, numbness, or weakness. Pertinent positives per HPI. [facility] Past Medical History Medical History (Updated 04/28/23 @ 16:43 by Nellie Ferguson, MACHINE ADJUSTER) Acute bronchitis (~2018) BMI 26.0-26.9,adult Bradycardia (~2018) CAD (coronary artery disease) CAP (community acquired pneumonia) Cellulitis of left elbow Colon cancer screening Elbow pain, left Encounter to establish care Epidermoid cyst of neck Fall from ladder History of heart attack Hyperlipidemia Hypertension Leukocytosis Localized swelling, mass and lump, neck Nocturia Osteoarthritis Screening for lung cancer Sepsis Sinusitis, acute Skin lesions Small vessel coronary artery disease Smoking greater than 40 pack years Thrush, oral Tobacco abuse Wellness examination Surgical History Surgical History H/O excision of mass neck mass H/O shoulder surgery History of appendectomy History of cataract extraction History of vasectomy reversal Hx of CABG (~05/2008) Hx of total knee arthroplasty Family History Family History Mother Family history of malignant neoplasm Social History Social History Smoking packs per day: 1 Smoking cigarettes per day: 20.0 Years smoked: 60 Smoking pack-years: 60.00 Smoking status: Current every day smoker Tobacco type: cigars Alcohol intake: former Drinks per week: 0 Substance use: never Substance use type: does not use Lack of Transportation: No Lack of Food: Never True Current Housing: I Have Housing Concerned About Future Housing: No Difficulty Paying Gas/Electric Bills: No Difficulty Paying for Meds: No Currently Unemployed: No Education: High School Diploma/GED Difficulty w/ Childcare or Family Care: No Living arrangements: with family Occupation/Education: retired Gender identity (if verbalized by the patient): Male Spiritual care concerns: No Comments At the time of my signature, I reviewed and agree with the nursing past medical, surgical, social, and family history. There is no relevant family history pertinent to the patient complaint. Exam Narrative: GENERAL: This is a
[2023-04-28 16:36] VITALS: BP 148/54; PULSE 66; RESP 18; TEMP 36.2; O2SAT 99
[2023-04-28] MEDS: TETANUS,DIPHTHERIA,AC PERTUSSIS ADULT (0.5 ML) BOOSTRIX IM (16:47)
[2023-04-28] MEDS: LIDOCAINE HCL 1% LOCAL INJ 2 ML AMPUL 4 ML INFILTRATE (17:02)
== END 2023-04-28 17:18 | disposition home or self-care (01) ==
PROVIDERS: Emergency Provider Nurse Practitioner Family; PCP Nurse Practitioner Family
DX: S01.25XA Open bite of nose, initial encounter (principal); I25.10 Atherosclerotic heart disease of native coronary artery without angina pectoris; I25.2 Old myocardial infarction; E78.5 Hyperlipidemia, unspecified; I10 Essential (primary) hypertension; F17.210 Nicotine dependence, cigarettes, uncomplicated; Z79.82 Long term (current) use of aspirin; Z79.899 Other long term (current) drug therapy; Z23 Encounter for immunization; W54.0XXA Bitten by dog, initial encounter
CPT/HCPCS: 12011; 90471; 90715; 99213; G0463

== ENCOUNTER 2023-05-02 11:04 | Emergency (ER) | payer MEDICARE, OTHER, SELFPAY ==
[2023-05-02 11:13] VITALS: BP 149/54; PULSE 58; RESP 14; TEMP 36.3; O2SAT 99
--- NOTE | 2023-05-02 11:13 | ED.WOUNDLAC ---
HPI - Wound/Laceration General Chief Complaint: Skin/Abscess/Foreign Body Stated Complaint: Suture Removal Nose Time Seen by Provider: 05/02/23 11:13 Source: patient, RN notes reviewed and old records reviewed Mode of arrival: ambulatory Limitations: no limitations History of Present Illness HPI narrative: 73-year-old male presents to the [facility] requesting suture removal. It was placed on a Monday the 28 of April, 4 days ago. States he thinks 1 suture has already come out. Patient currently is on Augmentin. Related Data Home Medications Medication Instructions Recorded Confirmed aspirin 81 mg tablet,delayed 81 mg PO DAILY 03/26/20 05/02/23 release finasteride 5 mg tablet (Proscar) 5 mg PO DAILY 03/26/20 05/02/23 lisinopril 40 mg tablet 40 mg PO DAILY 03/26/20 05/02/23 rosuvastatin 40 mg tablet 40 mg PO DAILY 03/26/20 05/02/23 nifedipine 30 mg tablet,extended 60 mg PO QPM 10/05/20 05/02/23 release 24 hr (Procardia XL) acetaminophen 500 mg tablet 500 mg PO Q6H PRN Pain 01/08/21 05/02/23 (Tylenol Extra Strength) Allergies Allergy/AdvReac Type Severity Reaction Status Date / Time Penicillins AdvReac Mild Hives Verified 05/02/23 11:13 Review of Systems Review of Systems: All systems reviewed & are unremarkable except as noted in HPI and below Constitutional: Constitutional: Reports no additional constitutional complaints Eyes: Eyes: Reports no additional eye complaints ENT: Reports as per HPI Cardiovascular: Cardiovascular: Reports no additional cardiovascular complaints, Denies chest pain and Denies dyspnea Respiratory: Respiratory: Reports no additional respiratory complaints, Denies chest congestion, Denies cough and Denies dyspnea Gastrointestinal: Gastrointestinal: Reports no additional gastrointestinal complaints, Denies abdominal pain, Denies nausea and Denies vomiting Musculoskeletal: Musculoskeletal: Reports no additional musculoskeletal complaints Integumentary/Breasts: Skin/Breast: Reports as per HPI Neurologic: Reports system reviewed and no additional complaints, except as documented Psychiatric: Psychiatric: Reports no additional psychiatric complaints Allergic/Immunologic: Allergic/Immunologic: Reports no additional allergic/immunologic complaints PMFSH Past Medical History Medical History Acute bronchitis (~2019) BMI 26.0-26.9,adult Bradycardia (~2019) CAD (coronary artery disease) CAP (community acquired pneumonia) Cellulitis of left elbow Colon cancer screening Elbow pain, left Encounter to establish care Epidermoid cyst of neck Fall from ladder History of heart attack Hyperlipidemia Hypertension Leukocytosis Localized swelling, mass and lump, neck Nocturia Osteoarthritis Screening for lung cancer Sepsis Sinusitis, acute Skin lesions Small vessel coronary artery disease Smoking greater than 40 pack years Thrush, oral Tobacco abuse Wellness examination Surgical History Surgical History H/O excision of mass neck mass H/O shoulder surgery History of appendectomy History of cataract extraction History of vasectomy reversal Hx of CABG (~05/2008) Hx of total knee arthroplasty Family History Family History Mother Family history of malignant neoplasm Social History Social History Smoking packs per day: 1 Smoking cigarettes per day: 20.0 Years smoked: 60 Smoking pack-years: 60.00 Smoking status: Current every day smoker Tobacco type: cigars Alcohol intake: former Drinks per week: 0 Substance use: never Substance use type: does not use Lack of Transportation: No Lack of Food: Never True Current Housing: I Have Housing Concerned About Future Housing: No Difficulty Paying Gas/Electric Bills: No Difficulty Pa
== END 2023-05-02 11:46 | disposition home or self-care (01) ==
PROVIDERS: Emergency Provider Nurse Practitioner; PCP Nurse Practitioner Family
DX: Z48.01 Encounter for change or removal of surgical wound dressing (principal); F17.290 Nicotine dependence, other tobacco product, uncomplicated; I25.10 Atherosclerotic heart disease of native coronary artery without angina pectoris; I25.2 Old myocardial infarction; E78.5 Hyperlipidemia, unspecified; I10 Essential (primary) hypertension; M19.90 Unspecified osteoarthritis, unspecified site; Z95.1 Presence of aortocoronary bypass graft; Z79.82 Long term (current) use of aspirin
CPT/HCPCS: 99211; G0463

== ENCOUNTER 2023-05-06 11:57 | Emergency (ER) | payer MEDICARE, OTHER, SELFPAY ==
[2023-05-06 12:06] VITALS: BP 133/50; PULSE 62; RESP 20; TEMP 36.6; O2SAT 99
--- NOTE | 2023-05-06 12:24 | ED.SKABFB ---
HPI - Skin/Abscess/Foreign Bdy General Chief complaint: Skin/Abscess/Foreign Body Stated complaint: Suture Removal Nose Time Seen by Provider: 05/06/23 12:26 Source: patient Mode of arrival: ambulatory Limitations: no limitations History of Present Illness HPI narrative: 73-year-old male presented for suture removal. Patient has of laceration to the rates side of the nose which was sustained on 04/28 from a dog bite, 2 sutures were placed. He denies complications or signs of infection. Related Data Home Medications Medication Instructions Recorded Confirmed aspirin 81 mg tablet,delayed 81 mg PO DAILY 03/26/20 05/06/23 release finasteride 5 mg tablet (Proscar) 5 mg PO DAILY 03/26/20 05/06/23 lisinopril 40 mg tablet 40 mg PO DAILY 03/26/20 05/06/23 rosuvastatin 40 mg tablet 40 mg PO DAILY 03/26/20 05/06/23 nifedipine 30 mg tablet,extended 60 mg PO QPM 10/05/20 05/06/23 release 24 hr (Procardia XL) acetaminophen 500 mg tablet 500 mg PO Q6H PRN Pain 01/08/21 05/06/23 (Tylenol Extra Strength) Allergies Allergy/AdvReac Type Severity Reaction Status Date / Time Penicillins AdvReac Mild Hives Verified 05/06/23 12:10 Review of Systems Review of Systems: CONSTITUTIONAL: Denies body aches, fever, chills, or sweats. EYES: Denies visual changes, redness, or discharge. ENT: Denies rhinorrhea, congestion CARDIOVASCULAR: Denies chest pain, palpitations, or edema. RESPIRATORY: Denies cough or dyspnea. GASTROINTESTINAL: Denies abdominal pain, nausea, vomiting, or diarrhea. SKIN: laceration to nose with sutures MUSCULOSKELETAL: Denies back pain, joint pain, or myalgia. NEUROLOGIC: Denies headache, numbness, tingling, or weakness. [facility] Past Medical History Medical History Acute bronchitis (~2018) BMI 26.0-26.9,adult Bradycardia (~2019) CAD (coronary artery disease) CAP (community acquired pneumonia) Cellulitis of left elbow Colon cancer screening Elbow pain, left Encounter to establish care Epidermoid cyst of neck Fall from ladder History of heart attack Hyperlipidemia Hypertension Leukocytosis Localized swelling, mass and lump, neck Nocturia Osteoarthritis Screening for lung cancer Sepsis Sinusitis, acute Skin lesions Small vessel coronary artery disease Smoking greater than 40 pack years Thrush, oral Tobacco abuse Wellness examination Surgical History Surgical History H/O excision of mass neck mass H/O shoulder surgery History of appendectomy History of cataract extraction History of vasectomy reversal Hx of CABG (~05/2008) Hx of total knee arthroplasty Family History Family History Mother Family history of malignant neoplasm Social History Social History Smoking packs per day: 1 Smoking cigarettes per day: 20.0 Years smoked: 60 Smoking pack-years: 60.00 Smoking status: Current every day smoker Tobacco type: cigars Alcohol intake: former Drinks per week: 0 Substance use: never Substance use type: does not use Lack of Transportation: No Lack of Food: Never True Current Housing: I Have Housing Concerned About Future Housing: No Difficulty Paying Gas/Electric Bills: No Difficulty Paying for Meds: No Currently Unemployed: No Education: High School Diploma/GED Difficulty w/ Childcare or Family Care: No Living arrangements: with family Occupation/Education: retired Gender identity (if verbalized by the patient): Male Spiritual care concerns: No Comments At time of signature, I have reviewed and agree with nursing past medical, surgical, social and family history unless otherwise noted. Please see nursing chart for further information. There is no relevant family history pertinent to the presenting complaint Exam Na
== END 2023-05-06 12:32 | disposition home or self-care (01) ==
PROVIDERS: Emergency Provider Nurse Practitioner Family; PCP Nurse Practitioner Family
DX: S01.21XD Laceration without foreign body of nose, subsequent encounter (principal); W54.0XXD Bitten by dog, subsequent encounter; F17.290 Nicotine dependence, other tobacco product, uncomplicated; I25.10 Atherosclerotic heart disease of native coronary artery without angina pectoris; I25.2 Old myocardial infarction; E78.5 Hyperlipidemia, unspecified; I10 Essential (primary) hypertension; M19.90 Unspecified osteoarthritis, unspecified site; Z95.1 Presence of aortocoronary bypass graft; Z79.82 Long term (current) use of aspirin
CPT/HCPCS: 99211; G0463

== ENCOUNTER 2023-06-05 15:12 | Outpatient (CLI) | payer MEDICARE, SELFPAY ==
--- NOTE | ~2023-06-05 | US_ITS ---
EXAMINATION: US carotid duplex BI DATE: 06/05/2023 19:46 INDICATION: Carotid stenosis. TECHNIQUE: Grayscale, color Doppler, and pulsed Doppler images of the cervical carotid arteries were obtained. The degree of vessel stenosis is placed in one of the following categories: normal, <50%, 5 0-69%, >=70% but less than near-occlusion, near-occlusion, or total occlusion. Note that percent sten osis relative to normal distal artery lumen diameter is indirectly measured from velocity measurement s as described by Winston, et al. Radiology 2003; [id number]. COMPARISON: Ultrasound 04/28/2019 FINDINGS: RIGHT: The right common carotid artery (CCA) peak systolic velocity (PSV) is 92 cm/s. The right internal car otid artery (ICA) PSV is 202 cm/s. The right ICA end-diastolic velocity (EDV) is 40 cm/s. The right I CA/CCA PSV ratio is 2.2. Grayscale and color Doppler images yield an estimate of >=50% diameter reduc tion from plaque in the ICA. There is antegrade flow in the right vertebral artery. LEFT: The left CCA PSV is 97 cm/s. The left ICA PSV is 132 cm/s. The left ICA EDV is 25 cm/s. The left ICA/ CCA PSV ratio is 1.4. Grayscale and color Doppler images yield an estimate of <50% diameter reduction from plaque in the ICA. There is antegrade flow in the left vertebral artery. IMPRESSION: 1. 50-69% stenosis in the right internal carotid artery. 2. <50% stenosis in the left internal carotid artery. Reviewed, dictated and finalized at location E. COMMUNICATIONS NETWORK ENGINEER
== END 2023-06-05 15:13 | disposition home or self-care (01) ==
PROVIDERS: PCP Nurse Practitioner Family; Visit Provider Internal Medicine Cardiovascular Disease
DX: I65.23 Occlusion and stenosis of bilateral carotid arteries (principal)
CPT/HCPCS: 93880

== ENCOUNTER 2024-06-04 09:09 | Outpatient (CLI) | payer MEDICARE, SELFPAY ==
--- NOTE | ~2024-06-04 | US_ITS ---
EXAMINATION: US aorta [facility] scrn DATE: 06/04/2024 09:41 INDICATION: Abdominal aortic aneurysm screening with risk factors of hypertension, prior smoking, kristian cardial infarction and intermittent claudication. TECHNIQUE: Grayscale, color Doppler, and pulsed Doppler images of the aorta and common iliac arteries were obtained. COMPARISON: None. FINDINGS: The proximal aorta measures 2.9 cm. The mid aorta measures 2.0 cm. The distal aorta measures 2.1 cm. The right common iliac artery measures 1.3 cm. The left common iliac artery measures 1.4 cm. Small am ount of scattered atherosclerotic plaque without evident hemodynamically significant stenosis in the abdominal aorta and bilateral iliac arteries. IMPRESSION: 1. Normal caliber abdominal aorta. Reviewed, dictated and finalized at location B. HORSE DRIVER
== END 2024-06-04 09:10 | disposition home or self-care (01) ==
PROVIDERS: PCP Nurse Practitioner Family; Visit Provider Internal Medicine Cardiovascular Disease
DX: F17.200 Nicotine dependence, unspecified, uncomplicated (principal)
CPT/HCPCS: 76706

== ENCOUNTER 2024-07-19 12:56 | Emergency (ER) | payer MEDICARE, SELFPAY ==
--- NOTE | 2024-07-19 12:57 | ED.WOUNDLAC ---
HPI - Wound/Laceration General Chief Complaint: Wound/Laceration Stated Complaint: sliced thumb Time Seen by Provider: 07/19/24 12:57 Source: patient Mode of arrival: ambulatory Limitations: no limitations History of Present Illness HPI narrative: Cain is a 74-year-old male patient presenting to the clinic today with complaints of a cut to his thumb. He reports he was using a journeyman meat cutter and cut his thumb just prior to arrival. States he cannot get it to stop bleeding. Take the baby aspirin but no other blood thinners. Tetanus is [id number] Related Data Home Medications ?Medication ?Instructions ?Recorded ?Confirmed ?Last Taken ?Type aspirin 81 mg tablet,delayed 81 mg PO DAILY 03/26/20 04/09/24 01/18/21 History release finasteride 5 mg tablet (Proscar) 5 mg PO DAILY 03/26/20 04/09/24 01/20/21 History lisinopril 40 mg tablet 40 mg PO DAILY 03/26/20 04/09/24 01/20/21 History rosuvastatin 40 mg tablet 40 mg PO DAILY 03/26/20 04/09/24 01/18/21 History nifedipine 30 mg tablet,extended 60 mg PO QPM 10/05/20 04/09/24 Unknown History release 24 hr (Procardia XL) acetaminophen 500 mg tablet 500 mg PO Q6H PRN Pain 01/08/21 04/09/24 01/14/21 History (Tylenol Extra Strength) Allergies Allergy/AdvReac Type Severity Reaction Status Date / Time Penicillins Allergy Mild Hives Verified 07/19/24 13:07 Review of Systems Review of Systems: Pertinent positives per HPI. Patient denies any fever, chills, rash, headache, visual changes, dizziness, cough, runny nose, sore throat, shortness of breath, chest pain, palpitations, nausea, vomiting, diarrhea, constipation, abdominal pain, or any urinary issues. [facility] Past Medical History Medical History Wheezing Chronic nasal congestion Hx of colonic polyps Skin lesions Screening for lung cancer Cellulitis of left elbow Fall from ladder Elbow pain, left Sinusitis, acute Tobacco abuse Wellness examination History of heart attack Smoking greater than 40 pack years Localized swelling, mass and lump, neck BMI 26.0-26.9,adult Encounter to establish care Epidermoid cyst of neck Colon cancer screening Thrush, oral Nocturia Osteoarthritis CAD (coronary artery disease) Bradycardia (~2018) Acute bronchitis (~2019) Small vessel coronary artery disease CAP (community acquired pneumonia) Sepsis Leukocytosis Hyperlipidemia Hypertension Surgical History Surgical History H/O excision of mass neck mass H/O shoulder surgery History of cataract extraction History of appendectomy History of vasectomy reversal Hx of total knee arthroplasty Hx of CABG (~05/2008) Family History Family History Mother Family history of malignant neoplasm Social History Social History Smoking packs per day: 1 Smoking cigarettes per day: 20.0 Years smoked: 60 Smoking pack-years: 60.00 Smoking status: Current every day smoker Tobacco type: cigars Second hand tobacco smoke exposure: Yes Alcohol intake: former Drinks per week: 0 Substance use: never Substance use type: does not use Do You Feel Safe in your Home?: Yes Lack of Transportation: No Lack of Food: Never True Current Housing: I Have Housing Concerned About Future Housing: No Difficulty Paying Gas/Electric Bills: No Difficulty Paying for Meds: No Currently Unemployed: No Education: High School Diploma/GED Difficulty w/ Childcare or Family Care: No Living arrangements: with family Occupation/Education: retired 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 Gender identity (if verbalized by the patient): Male Spiritual care concerns: No Comments At the time of my signature, I reviewed and agree with the nursing past medical, surgical, social, and family history. There is no relevant family history pertinent to the patient complaint. Exam Narrative: General: Well-developed, well nourished, in no apparent distress Head: Normocephalic, atraumatic. Cardio: Regular rate and rhythm, s1 and s2 normal, no murmur appreciated. Resp: Clear to auscultation bilaterally, no rhonchi, rales, wheezing or rubs. Integumentary: [place], warm, and dry, skin avulsion measuring 1 cm x 0.5 cm to the right thumb- wound still oozing blood Course Course Emergency Course: Portions of this record may have been created with voice recognition software. Level of Care: Express Care Visit Vital Signs Vital signs: Vital Signs Temperature 36.6 C 07/19/24 13:05 Pulse Rate 62 07/19/24 13:05 Respiratory Rate 18 07/19/24 13:05 Blood Pressure 153/51 H 07/19/24 13:05 Pulse Oximetry 99 07/19/24 13:05 Oxygen Delivery Room Air 07/19/24 13:05 Temperature 36.6 C 07/19/24 13:05 Pulse Rate 62 07/19/24 13:05 Respiratory Rate 18 07/19/24 13:05 Blood Pressure 153/51 H 07/19/24 13:05 Pulse Oximetry 99 07/19/24 13:05 Oxygen Delivery Room Air 07/19/24 13:05 Vital signs reviewed MDM - Wound/Laceration MDM Narrative Medical decision making narrative: At the time of visit patient is resting comfortably on the exam table. Patient appears to be nontoxic. Procedures: Wounds was cleansed with antiseptic wound wash and saline. Surgicel dressing was applied. Bleeding was controlled. Patient tolerated well Plan: I suspect patient has a skin avulsion without nail involvement to the right thumb. Surgicel dressing was applied. Supportive measures were discussed with the patient and they voiced understanding discharge instructions and agrees to treatment plan. Return precautions reviewed Differential Diagnosis Differential diagnosis: Likely laceration, abscess, abrasion and avulsion of skin Discharge Plan Discharge Clinical Impression: Avulsion of skin of right thumb Patient Disposition: Home, Self-Care Condition: Stable Instructions: Antibiotic Form, Skin Avulsion (ED) Additional Instructions: Leave bandage on for 24 hours then may remove and apply band aide covering as needed. Keep the Surgicel in place-allow this to fall off on its own Keep wound clean and dry Watch for signs and symptoms of infection- redness, streaking, swelling, purulent discharge, or increase in pain. Follow up with your PCP as needed Patient Language: Wolof Prescriptions: No Action nifedipine [Procardia XL] 30 mg tablet extended release 24hr 60 mg PO QPM acetaminophen [Tylenol Extra Strength] 500 mg tablet 500 mg PO Q6H PRN (Reason: Pain) albuterol sulfate 90 mcg/actuation HFA aerosol inhaler 1 - 2 inh inhalation Q4-6H PRN (Reason: shortness of breath or wheezing) Qty: 8.5 11RF fluticasone propionate [Flonase Allergy Relief] 50 mcg/actuation spray,suspension 1 spray intranasal BID Qty: 48 3RF Rx Instructions: administer into each nostril prednisone 10 mg tablet 10 mg PO BID Qty: 20 0RF aspirin 81 mg Tablet,Delayed Release (Dr/Ec) 81 mg PO DAILY lisinopril 40 mg tablet 40 mg PO DAILY finasteride [Proscar] 5 mg tablet 5 mg PO DAILY rosuvastatin 40 mg tablet 40 mg PO DAILY Follow-up/Referrals: Gerson Davey MD [Primary Care Provider] - Time of Disposition: 13:23 Quality NIHSS Nursing Documentation ED NIHSS nursing documentation: reviewed/agree
[2024-07-19 13:05] VITALS: BP 153/51; PULSE 62; RESP 18; TEMP 36.6; O2SAT 99
[2024-07-19] MEDS: CELLULOSE OXIDIZED 2 x 14 INCH 1 PKT XX (13:16)
== END 2024-07-19 13:27 | disposition home or self-care (01) ==
PROVIDERS: Emergency Provider Nurse Practitioner Family; PCP Family Medicine
DX: S61.011A Laceration without foreign body of right thumb without damage to nail, initial encounter (principal); W26.8XXA Contact with other sharp object(s), not elsewhere classified, initial encounter; Y93.G1 Activity, food preparation and clean up; Z86.0100 Personal history of colon polyps, unspecified; Z87.891 Personal history of nicotine dependence; L72.8 Other follicular cysts of the skin and subcutaneous tissue; I25.10 Atherosclerotic heart disease of native coronary artery without angina pectoris; E78.5 Hyperlipidemia, unspecified; I10 Essential (primary) hypertension
CPT/HCPCS: 99212; G0463

== ENCOUNTER 2024-08-30 12:13 | Emergency (ER) | payer MEDICARE, SELFPAY ==
--- NOTE | ~2024-08-30 | XR_ITS ---
XR finger 1st LT min 2V 08/30/2024 12:51 Indication: Laceration to the nailbed. Tablesaw injury. Procedure: 3 views left first finger Comparison: No prior studies for comparison. Findings: There is an avulsion fracture of the tuft of the first distal phalanx. There is moderate os teoarthritis of the MCP and IP joints. No foreign bodies. Mild soft tissue swelling. Impression: 1: Tuft avulsion of the left first distal phalanx. Reviewed, dictated and finalized at location B. ITY CONTROL PUNCHER Impression: 1: Tuft avulsion of the left first distal phalanx.
--- OUTSIDE RECORDS SUMMARY | 2024-08-30 12:15 | XMS_ITS | Referral Summary ---
Author Organization [facility] [address] Address [address] [place] [address] Care Team Providers Care Steel Pan Form Placing Supervisor Name Role Phone Gerson Davey MD Primary Care Provider [phone] Encounters Date Type Department Care Team Description 06/04/2024 Orders Only [facility] Health Information Management [address] [place] [id number] Ed Kenney MD from Last 3 Months Allergies Active Allergy Reactions Criticality Noted Date Comments Penicillins Hives Medium Medications aspirin 81 mg tablet Take one by mouth one time per day 0 0 8 Active finasteride (PROSCAR) 5 mg tablet Take 1 tablet (5 mg total) by mouth daily 90 tablet 2 4 Active NIFEdipine (NIFEdipine CC) 60 mg 24 hr tablet Take 1 tablet (60 mg total) by mouth daily 90 tablet 1 4 Active rosuvastatin (CRESTOR) 40 mg tabletIndications:Mix ed hyperlipidemia,Pandey ry arteriosclerosis in [place] artery Take 1 tablet (40 mg total) by mouth daily 90 tablet 1 4 Active lisinopriL (PRINIVIL,ZESTRIL) 40 mg tabletIndications:Ess ential hypertension Take 1 tablet (40 mg total) by mouth daily 90 tablet 3 4 Active Active Problems Problem Noted Date Diagnosed Date Aortic valve stenosis, nonrheumatic 05/23/2023 Murmur, heart 05/11/2022 Swelling of both lower extremities 04/29/2021 Glucose intolerance 04/29/2021 Carotid atherosclerosis, bilateral 04/23/2019 Bradycardia 05/31/2017 Cough 08/08/2016 Overview (10/20/2016): Cough Essential hypertension 05/19/2014 Overview (10/20/2016): Hypertension Assessment & Plan (03/31/2017 4:43 PM CDT): Hypertension is at goal on medical therapy Mild bradycardia noted, asymptomatic Old myocardial infarction 05/19/2014 Overview (10/20/2016): Old [facility] (myocardial infarction) History of coronary artery bypass surgery 2013 Overview (03/31/2017): AORTOCORONARY BYPASS 2006: CABG X 4 (GARCIA to LAD, SVG to Om2, left radial T-graft sequentially to ramus and D1) Multiple-type hyperlipidemia 11/30/2013 Overview (10/20/2016): MIXED HYPERLIPIDEMIA Tobacco dependence syndrome 11/30/2013 Overview (10/20/2016): TOBACCO USE DISORDER Assessment & Plan (03/31/2017 4:44 PM CDT): Unable to quit smoking Coronary arteriosclerosis in [place] artery 11/30 Overview (03/31/2017): CRNRY ATHRSCL NATVE VSSL 2006: CABG X 4 (GARCIA to LAD, SVG to Om2, left radial T-graft sequentially to ramus and D1) Assessment & Plan (03/31/2017 4:37 PM CDT): Doing well with no angina 10 years after CABG on medical therapy. Resolved Problems Problem Noted Date Diagnosed Date Resolved Date Preoperative cardiovascular examination 05/04/2020 04/29/2021 Claudication 08/08/2016 04/23/2019 Overview (10/20/2016): Claudication Carotid atherosclerosis 06/02/201502/2019 Overview (10/20/2016): Atherosclerosis of both carotid arteries Assessment & Plan (03/31/2017 4:39 PM CDT): 50-69% bilateral carotid stenosis, asymptomatic Acute subendocardial infarction (CMS/HCC) 11/30/2013 04/29/2021 Overview (10/20/2016): SUBENDO INFARCT, SUBSEQ Social History Tobacco Use Types Packs/Day Years Used Date Smoking Tobacco: Every Day Smokeless Tobacco: Never Tobacco Cessation:Ready to Q uit: Not Asked; Counseling Given: Not Answered Alcohol Use Standard Drinks/Week Comments Yes 0 (1 standard drink = 0.6 oz pur e alcohol) Sex and Gender Information Value Date Recorded Sex Assigned at Not on file Legal Sex Male 9:57 PM SURFACE PLATE INSPECTOR Gender Identity Not on file Sexual Orientation Not on file Last Filed Vital Signs Vital Sign Reading Time Taken Comments Blood Pressure 130/65 05/22/2024 11:01 AM SURFACE PLATE INSPECTOR Pulse 54 05/22/2024 10:25 AM SURFACE PLATE INSPECTOR Temperature - - Respiratory Rate 12 03/31/2017 10:08 AM CDT Oxygen Saturation 97% 05/22/2024 10:25 AM SURFACE PLATE INSPECTOR Inhaled Oxygen Concentration - - Weight 82.6 kg (182 lb) 05/22/2024 10:25 AM SURFACE PLATE INSPECTOR Height 188 cm (6' 2 ) 05/22/2024 10:25 AM SURFACE PLATE INSPECTOR Body Mass Index 23.37 05/22/2024 10:25 AM SURFACE PLATE INSPECTOR Plan of Treatment Not on file Procedures Procedure Name Priority Date/Time Associated Diagnosis Comments SCAN - RADIOLOGY/IMAGING 06/04/2024 from Last 3 Months Results * SCAN - RADIOLOGY/IMAGING (06/04/2024) Anatomical Region Laterality Modality Other us Ed Kenney MD Final Res ult from Last 3 Months Insurance [employer] GENERIC MEDICARE SOLUTIONS [place] [id number] [place] [id number] [facility] MEDIC[facility] Address: [facility] [address] [place] [address] COMMERCIAL GENERIC Care Teams Steel Pan Form Placing Supervisor Relationship Specialty Start Date End Date Gerson Davey MD [address] [id number] PCP - General Family Medicine 05/11/22
--- OUTSIDE RECORDS SUMMARY | 2024-08-30 12:15 | XMS_ITS | Clinical Summary ---
Author Organization [facility] [address] Address [address] [place] [address] Care Team Providers Care Specialty Transformer Assembler Name Role Phone Gerson Davey MD Primary Care Provider [phone] Allergies Active Allergy Reactions Criticality Noted Date [...] mg tabletIndications:Mix ed hyperlipidemia,Pandey ry arteriosclerosis in [place] artery Take 1 tablet (40 mg total) [...] Old myocardial infarction 05/19/2014 Overview (10/20/2016): Old [place] (myocardial infarction) History of coronary artery bypass surgery 2013 Overview (03/31/2017): AORTOCORONARY BYPASS 2006: CABG X 4 (GARCIA to LAD, SVG to Om2, left radial T-graft sequentially to ramus and D1) Multiple-type hyperlipidemia 11/30/2013 Overview (10/20/2016): MIXED HYPERLIPIDEMIA Tobacco dependence syndrome 11/30/2013 Overview (10/20/2016): TOBACCO USE DISORDER Assessment & Plan (03/31/2017 4:44 PM CDT): Unable to quit smoking Coronary arteriosclerosis in [place] artery 11/30 Overview (03/31/2017): CRNRY ATHRSCL NATVE [...] 11/30/2013 04/29/2021 Overview (10/20/2016): SUBENDO INFARCT, SUBSEQ Encounters Date Type Department Care Team Description 06/04/2024 Orders Only [facility] Health Information Management [address] [place] [address] Ed Kenney MD from Last 3 Months Surgical History Surgery Date Site/Laterality Comments LUMBAR DISCECTOMY 07/17/1999 - 07/16/2000 Diskectomy, Lumbar TONSILLECTOMY Tonsillectomy KNEE ARTHROSCOPY 07/17/2012 - 07/16/2013 Right Knee Surgery, Arthroscopic CORONARY ARTERY BYPASS GRAFT 07/17/2005 - 07/16/2006 2006: CABG X 4 (GARCIA to LAD, SVG to Om2, left radial T-graft sequentially to ramus and D1) Medical History Medical History Date Comments Hx Other Medical DJD Hx Other Medical Back Pain Hx Other Medical 08/2014 Arthoroscopic r ight knee surgery; Comments: ELU 12/01/2014 - Carotid artery disease (HCC) Hypertension Hyperlipidemia Family History Medical History Relation Name Comments Other Father 2 Did not know fa ther.; Cancer Mother 2 cancer; Cause o f : cancer Relation Name Status Comments Father 1 Alive Father 2 Mother 1 Mother 2 Social History Tobacco Use Types Packs/Day Years Used Date Smoking Tobacco: Every Day Smokeless Tobacco: Never Tobacco Cessation:Ready to Q uit: Not Asked; Counseling Given: Not Answered Alcohol Use Standard Drinks/Week Comments Yes 0 (1 standard drink = 0.6 oz pur e alcohol) Sex and Gender Information Value Date Recorded Sex Assigned at Not on file Legal Sex Male 9:57 PM TRAINING ANALYST Gender Identity Not on file Sexual Orientation Not on file Obstetrics History Last Filed Vital Signs Vital Sign Reading Time Taken Comments Blood Pressure 130/65 05/22/2024 11:01 AM TRAINING ANALYST Pulse 54 05/22/2024 10:25 AM TRAINING ANALYST Temperature - - Respiratory Rate 12 03/31/2017 10:08 AM CDT Oxygen Saturation 97% 05/22/2024 10:25 AM TRAINING ANALYST Inhaled Oxygen Concentration - - Weight 82.6 kg (182 lb) 05/22/2024 10:25 AM TRAINING ANALYST Height 188 cm (6' 2 ) 05/22/2024 10:25 AM TRAINING ANALYST Body Mass Index 23.37 05/22/2024 10:25 AM TRAINING ANALYST Plan of Treatment Health Maintenance Due Date Last Done Comments Colon Cancer Screening-Colonoscopy 1949 Depression Screening 1949 Fall Risk Assessment 1950 Hepatitis C Screening 1950 Pneumococcal vaccine 65+ (1 of 2 - PCV) 1955 DTaP/Tdap/Td Vaccine (1 - Tdap) 01/18/1960 Hepatitis B Screening 1967 Zoster Vaccine (1 of 2) 1999 Abdominal Aortic Aneurysm (AAA) Screen 2014 Well Visit 65+ 2014 Influenza Vaccine (#1) 2024 04/08/2018, 2016 Procedures Procedure Name Priority Date/Time Associated Diagnosis Comments SCAN - RADIOLOGY/IMAGING 06/04/2024 from Last 3 Months Results * SCAN - RADIOLOGY/IMAGING (06/04/2024) Anatomical Region Laterality Modality Other us Ed Kenney MD Final Res ult from Last 3 Months Insurance [employer] GENERIC MEDICARE SOLUTIONS [place] [id number] MEDICARE SOLUTIONS [place] [id number] [facility] [address], [address] MEDICARE SOLUTIONS COMMERCIAL GENERIC Care Teams Specialty Transformer Assembler Relationship Specialty Start Date End Date Gerson Davey MD [address] [address] PCP - General Family Medicine 05/11/22
--- OUTSIDE RECORDS SUMMARY | 2024-08-30 12:15 | XMS_ITS | Clinical Summary ---
Author Organization [facility] Address [address] [place] [id number] Care Team Providers Care Tax Assistant Name Role Phone Yesenia Mckenzie MD Primary Care Provider Social History Tobacco Use Types Packs/Day Years Used Date Smoking Tobacco: Never Assessed Sex and Gender Information Value Date Recorded Sex Assigned at Not on file Legal Sex Male 12:37 PM CDT Gender Identity Not on file Sexual Orientation Not on file Plan of Treatment Health Maintenance Due Date Last Done Comments Colorectal Cancer Screening Colonoscopy (10 Years) 1949 Hepatitis C 1967 DTaP, Tdap and Td Vaccines ( 1 - Tdap) 01/18/1968 Zoster Vaccines (1 of 2) 1999 Annual Medicare Wellness Visit 2014 Pneumococcal Vaccine: 65+ Years (1 of 1 - PCV) 2014 RSV Immunization or 60+ Years (1 - 1-dose 75+ series) 01/18/2024 COVID-19 Vaccine (2 - 2023-2 5 season) 2024 09/23/2020 Influenza Adult (#1) 2024 05/14/2020, 05/03/2017 Meningococcal B Vaccine Aged Out No l onger eligible based on patient's age to complete this topic Meningococcal Vaccine Aged Out No sara jacquie eligible based on patient's age to complete this topic RSV Immunizations Under 20 Months Aged Out No longer eligible b ased on patient's age to complete this topic Insurance [facility] GENER[facility] - COMMERCIAL on file Care Teams Tax Assistant Relationship Specialty Start Date End Date Yesenia Mckenzie MD [address] [place] [address] PCP - General FAMILY PRACTICE 10/09/20
--- NOTE | 2024-08-30 12:29 | ED_ITS ---
HPI - Wound/Laceration General Chief Complaint: Wound/Laceration Stated Complaint: LT Thumb Cut Time Seen by Provider: 08/30/24 12:30 Source: patient Mode of arrival: ambulatory Limitations: no limitations History of Present Illness HPI narrative: Cain is a 74-year-old male patient presenting to the clinic today with complaints of a cut to his left thumb. He reports he cut the tip of his left thumb on a table saw. This occurred approximately 1.5 hours ago. Bleeding is controlled. Last tetanus shot was in 2022. Related Data Home Medications ?Medication ?Instructions ?Recorded ?Confirmed ?Last Taken ?Type aspirin 81 mg tablet,delayed 81 mg PO DAILY 03/26/20 04/09/24 01/18/21 History release finasteride 5 mg tablet (Proscar) 5 mg PO DAILY 03/26/20 04/09/24 01/20/21 History lisinopril 40 mg tablet 40 mg PO DAILY 03/26/20 04/09/24 01/20/21 History rosuvastatin 40 mg tablet 40 mg PO DAILY 03/26/20 04/09/24 01/18/21 History nifedipine 30 mg tablet,extended 60 mg PO QPM 10/05/20 04/09/24 Unknown History release 24 hr (Procardia XL) acetaminophen 500 mg tablet 500 mg PO Q6H PRN Pain 01/08/21 04/09/24 01/14/21 Hi story (Tylenol Extra Strength) Allergies Allergy/AdvReac Type Severity Reaction Status Date / Time Penicillins Allergy Mild Hives Verified 08/30/24 12:32 Review of Systems Review of Systems: Pertinent positives per HPI. Patient denies any fever, chills, rash, headache, visual changes, dizziness, cough, shortness of breath, chest pain, palpitations, nausea, vomiting, diarrhea, constipation, abdominal pain, or any urinary issues. [facility] Past Medical History Medical History Wheezing Chronic nasal congestion Hx of colonic polyps Skin lesions Screening for lung cancer Cellulitis of left elbow Fall from ladder Elbow pain, left Sinusitis, acute Tobacco abuse Wellness examination History of heart attack Smoking greater than 40 pack years Localized swelling, mass and lump, neck BMI 26.0-26.9,adult Encounter to establish care Epidermoid cyst of neck Colon cancer screening Thrush, oral Nocturia Osteoarthritis CAD (coronary artery disease) Bradycardia (~2019) Acute bronchitis (~2019) Small vessel coronary artery disease CAP (community acquired pneumonia) Sepsis Leukocytosis Hyperlipidemia Hypertension Surgical History Surgical History H/O excision of mass neck mass H/O shoulder surgery History of cataract extraction History of appendectomy History of vasectomy reversal Hx of total knee arthroplasty Hx of CABG (~05/2008) Family History Family History Mother Family history of malignant neoplasm Social History Social History Smoking packs per day: 1 Smoking cigarettes per day: 20.0 Years smoked: 60 Smoking pack-years: 60.00 Smoking status: Current every day smoker Tobacco type: cigars Second hand tobacco smoke exposure: Yes Alcohol intake: former Drinks per week: 0 Substance use: never Substance use type: does not use Do You Feel Safe in your Home?: Yes Lack of Transportation: No Lack of Food: Never True Current Housing: I Have Housing Concerned About Future Housing: No Difficulty Paying Gas/Electric Bills: No Difficulty Paying for Meds: No Currently Unemployed: No Education: High School Diploma/GED Difficulty w/ Childcare or Family Care: No Living arrangements: with family Occupation/Education: retired Additional occupation/education comments: [employer] Gender identity (if verbalized by the patient): Male Spiritual care concerns: No Comments At the time of my signature, I reviewed and agree with the nursing past medical, surgical, social, and family history. There is no relevant family history pertinent to the patient complaint. Exam Narrative: General: Well-developed, well nourished, in no apparent distress Head: Normocephalic, atraumatic. Cardio: Regular rate and rhythm, s1 and s2 normal, no murmur appreciated. Resp: Clear to auscultation bilaterally, no rhonchi, rales, wheezing or rubs. Musculoskeletal: No deformity, avulsion/mangled skin laceration to the distal tip of the left thumb involving the fingernail, bleeding controlled, tender to palpation over the distal thumb, grossly normal range of motion, muscle strength strong and equal, peripheral pulse strong, no edema, no cyanosis, normal gait and station Course Course Emergency Course: Portions of this record may have been created with voice recognition software. Level of Care: Express Care Visit Vital Signs Vital signs: Vital Signs Temperature 36.2 C L 08/30/24 12:31 Pulse Rate 56 L 08/30/24 12:31 Respiratory Rate 15 08/30/24 12:31 Blood Pressure 141/45 H 08/30/24 12:31 Pulse Oximetry 100 08/30/24 12:31 Oxygen Delivery Room Air 08/30/24 12:31 Temperature 36.2 C L 08/30/24 12:31 Pulse Rate 56 L 08/30/24 12:31 Respiratory Rate 15 08/30/24 12:31 Blood Pressure 141/45 H 08/30/24 12:31 Pulse Oximetry 100 08/30/24 12:31 Oxygen Delivery Room Air 08/30/24 12:31 Vital signs reviewed Procedures Laceration Laceration 1: Date: 08/30/24 Site: hand (left distal thumb) Side (If applicable): left Size (cm): 1 Description: irregular and contaminated Depth: simple, single layer Local Anesthetic: lidocaine 1% Amount of anesthesia used (mL): 5 Pre-repair: wound explored, irrigated and irrigated extensively ====== Skin Level ====== Skin layer closed with: nylon Size (cm): 5-0 Number of sutures: 3 Technique: simple, interrupted ====== Subcutaneous Layer ====== ====== Muscle Layer ====== ====== Tendon Layer ====== Dressing: Verbal consent obtained for laceration repair. Risk and benefits explained and patient voiced understanding. Area was cleansed with antiseptic wound wash, sterile saline, and Betadine and a 25 gauge needle was then used to instill (5) ml of 1% lidocaine without epi into the wound edges/digital block. Area was prepped and draped using sterile technique. A 5-0 suture on a p needle was used to place (3) interrupted sutures bringing the wound edges together- well approximated. Patient tolerated procedure well. Sterile dressing applied. MDM - Wound/Laceration MDM Narrative Medical decision making narrative: At the time of visit patient is resting comfortably on the exam table. Patient appears to be nontoxic. Diagnostics: Left thumb x-ray was performed shows a tuft avulsion fracture to the distal phalanx Plan: Patient has a open tuft fracture of the left distal 1st phalanx/irregular avulsion/laceration, 3 interrupted sutures placed to better help wound to heal. Recommend follow-up with Dr. Goodrich hand specialist. Prescription for hydrocodone with Tylenol and Keflex was given. Supportive measures were discussed with the patient and they voiced understanding discharge instructions and agrees to treatment plan. Return precautions reviewed Differential Diagnosis Differential diagnosis: Likely laceration, abscess, abrasion, avulsion of skin and other (distal finger fracture) Imaging Data Radiologist's impression: ITS Impressions Finger X-Ray 08/30/24 12:55 Impression: 1: Tuft avulsion of the left first distal phalanx. Discharge Plan Discharge Clinical Impression: Open fracture of tuft of distal phalanx of finger Laceration of thumb Qualifiers: Encounter type: initial encounter Damage to nail status: with damage Foreign body presence: without foreign body Laterality: left Qualified Code(s): S61.112A - Laceration without foreign body of left thumb with damage to nail, initial encounter Patient Disposition: Home, Self-Care Condition: Stable Instructions: Antibiotic Form, Finger Fracture (ED), Finger Laceration (ED) Additional Instructions: X-ray shows a tuft avulsion fracture of the left 1st distal phalanx Take Keflex as prescribed Laceration repair was performed in the clinic today Leave bandage on for 24 hours then may remove and apply band aide covering as needed. Keep wound clean and dry Skin sutures out in 7 days. Watch for signs and symptoms of infection- redness, streaking, swelling, purulent discharge, or increase in pain. Follow up with your PCP for suture removal or return to the [facility] care. Follow-up with Dr. Goodrich next week- call office today to schedule an appointment Patient Language: Solomon Islander Prescriptions: New cephalexin 500 mg capsule 500 mg PO Q8H 7 Days Qty: 21 0RF hydrocodone-acetaminophen 5-325 mg tablet 1 tablet PO Q8H PRN (Reason: pain) 3 Days Qty: 10 0RF No Action nifedipine [Procardia XL] 30 mg tablet extended release 24hr 60 mg PO QPM acetaminophen [Tylenol Extra Strength] 500 mg tablet 500 mg PO Q6H PRN (Reason: Pain) albuterol sulfate 90 mcg/actuation HFA aerosol inhaler 1 - 2 inh inhalation Q4-6H PRN (Reason: shortness of breath or wheezing) Qty: 8.5 11RF fluticasone propionate [Flonase Allergy Relief] 50 mcg/actuation spray,suspension 1 spray intranasal BID Qty: 48 3RF Rx Instructions: administer into each nostril prednisone 10 mg tablet 10 mg PO BID Qty: 20 0RF aspirin 81 mg Tablet,Delayed Release (Dr/Ec) 81 mg PO DAILY lisinopril 40 mg tablet 40 mg PO DAILY finasteride [Proscar] 5 mg tablet 5 mg PO DAILY rosuvastatin 40 mg tablet 40 mg PO DAILY Follow-up/Referrals: Sendy Goodrich MD [Physician] - (Left thumb distal laceration with involvement of the nail/tuft avulsion fracture of the left 1st distal phalanx) Rebeca Coats NP [Primary Care Provider] - Time of Disposition: 13:35 Quality NIHSS Nursing Documentation ED NIHSS nursing documentation: reviewed/agree
[2024-08-30 12:31] VITALS: BP 141/45; PULSE 56; RESP 15; TEMP 36.2; O2SAT 100
[2024-08-30] MEDS: LIDOCAINE 1% LOCAL INJ 2 ML AMPUL 4 ML INFILTRATE (13:07)
== END 2024-08-30 13:53 | disposition home or self-care (01) ==
PROVIDERS: Emergency Provider Nurse Practitioner Family; PCP Nurse Practitioner Family
DX: S62.522B Displaced fracture of distal phalanx of left thumb, initial encounter for open fracture (principal); I25.2 Old myocardial infarction; I25.10 Atherosclerotic heart disease of native coronary artery without angina pectoris; I10 Essential (primary) hypertension; E78.5 Hyperlipidemia, unspecified; F17.210 Nicotine dependence, cigarettes, uncomplicated; W29.8XXA Contact with other powered hand tools and household machinery, initial encounter
CPT/HCPCS: 12031; 73140; 99213; G0463; J2003

== ENCOUNTER 2024-10-21 15:06 | Outpatient (CLI) | payer MEDICARE, SELFPAY ==
--- NOTE | ~2024-10-21 | CT_ITS ---
CT Scan of the Chest without Contrast: Clinical Indication: Lung cancer screening, nicotine dependence Technique: Contiguous sections were acquired throughout the chest without intravenous contrast. Dose reduction technique was used on this scan by utilizing automated exposure control and iterative recon struction technique. The dose-length product (DLP) was 75.11 mGy-cm. COMPARISON: 01/08/2021 Findings: There is no evidence of any significant mediastinal, hilar or axillary lymphadenopathy. Coronary luis manuel ry calcifications are present. Small calcified mediastinal lymph nodes are present. There is no evidence of pleural or pericardial effusion. There is minimal biapical scarring and mild biapical paraseptal emphysema. No distinct pulmonary nodu le evident. Images through the upper abdomen reveal calcified gallstone. Impression: Lung RADS 1: Negative. 12 month follow-up screening CT advised. Reviewed, dictated and finalized at location . Impression: Lung RADS 1: Negative. 12 month follow-up screening CT advised.
--- OUTSIDE RECORDS SUMMARY | 2024-10-21 17:19 | XMS_ITS | Clinical Summary ---
Author Organization [facility] Address [address] [place] [address] Care Team Providers Care Microbiological Laboratory Technician Name Role Phone Yesenia Mckenzie MD Primary [...] Medicare Wellness Visit 2014 Pneumococcal Vaccine: 65+ Ye ars (1 of 1 - PCV) 2014 RSV Immunization or 60+ Years (1 - 1-dose 75+ series) 01/18/2024 COVID-19 Vaccine (2 - 2023-2 5 season) 2024 09/23/2020 Meningococcal B Vaccine Aged Out No l onger eligible based on patient's age to complete this topic Meningococcal Vaccine Aged Out No sara jacquie eligible based on patient's age to complete this topic RSV Immunizations Under 20 Months Aged Out No longer eligible based on patient's age to complete this topic Insurance [facility] GENERIC - COMMERCIAL on file Care Teams Microbiological Laboratory Technician Relationship Specialty Start Date End Date Yesenia Mckenzie MD [address] [place] [address] PCP - General FAMILY PRACTICE 10/09/20
--- OUTSIDE RECORDS SUMMARY | 2024-10-21 17:19 | XMS_ITS | Clinical Summary ---
Author Organization [facility] [place] [address] [facility] [address] Address [address] [place] [address] Care Team Providers Care Wet Process Miller Head Assistant Name Role Phone Gerson Davey MD Primary Care Provider [phone] Allergies Active Allergy Reactions Criticality Noted Date [...] mg tabletIndications:Mix ed hyperlipidemia,Pandey ry arteriosclerosis in [place] artery Take 1 tablet (40 mg total) [...] Old myocardial infarction 05/19/2014 Overview (10/20/2016): Old [place] (myocardial infarction) History of coronary artery bypass surgery 2013 Overview (03/31/2017): AORTOCORONARY BYPASS 2006: CABG X 4 (GARCIA to LAD, SVG to Om2, left radial T-graft sequentially to ramus and D1) Multiple-type hyperlipidemia 11/30/2013 Overview (10/20/2016): MIXED HYPERLIPIDEMIA Tobacco dependence syndrome 11/30/2013 Overview (10/20/2016): TOBACCO USE DISORDER Assessment & Plan (03/31/2017 4:44 PM CDT): Unable to quit smoking Coronary arteriosclerosis in [place] artery 11/30 Overview (03/31/2017): CRNRY ATHRSCL NATVE [...] bilateral carotid stenosis, asymptomatic Acute subendocardial infarction (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 Gender Identity Not on file Sexual Orientation Not on file Obstetrics History Last Filed Vital Signs Vital Sign Reading Time Taken Comments Blood Pressure 130/65 05/22/2024 11:01 AM MANAGER TECHNICAL SUPPORT Pulse 54 05/22/2024 10:25 AM MANAGER TECHNICAL SUPPORT Temperature - - Respiratory Rate 12 03/31/2017 10:08 AM CDT Oxygen Saturation 97% 05/22/2024 10:25 AM MANAGER TECHNICAL SUPPORT Inhaled Oxygen Concentration - - Weight 82.6 kg (182 lb) 05/22/2024 10:25 AM MANAGER TECHNICAL SUPPORT Height 188 cm (6' 2 ) 05/22/2024 10:25 AM MANAGER TECHNICAL SUPPORT Body Mass Index 23.37 05/22/2024 10:25 AM MANAGER TECHNICAL SUPPORT Plan of Treatment Health Maintenance Due Date Last Done Comments Colon Cancer Screening-Colonoscopy 1949 Depression Screening 1949 Fall Risk Assessment 1949 Hepatitis C Screening 1950 DTaP/Tdap/Td Vaccine (1 - Tdap) 01/18/1960 Hepatitis B Screening 1967 Pneumococcal vaccine 65+ (1 of 2 - PCV) 01/18/1968 Zoster Vaccine (1 of 2) 1999 Abdominal Aortic Aneurysm (AAA) Screen 2014 Well Visit 65+ 2014 Influenza Vaccine (Season Ended) 2025 04/08/20 18, 05/03/2017 Insurance COMMERCIAL GENERIC MEDICARE ADVANTAGE [facility] Address: [facility] [address] [place] [address] [facility] MEDIC[facility]AGE [facility] Address: [address] [address] [place] [address] [facility] MEDIC[facility] Address: [address] [address] [place] [address] COMMERCIAL GENERIC Care Teams Wet Process Miller Head Assistant Relationship Specialty Start Date End Date Gerson Davey MD [address] [id number] PCP - General Family Medicine 05/11/22
--- OUTSIDE RECORDS SUMMARY | 2024-10-21 17:19 | XMS_ITS | CONTINUITY OF CARE DOCUMENT ---
Author Name maite arora Address Unknown Organization [facility] Address [address] [place] [address] [address] [place] [address] Phone [phone] Care Team Providers Care Mattress Stuffer Name Role Phone maite arora Unavailable Unavailable
--- OUTSIDE RECORDS SUMMARY | 2024-10-21 17:19 | XMS_ITS | Referral Summary ---
Author Organization [facility] [place] [place] [address] Address [address] [place] [address] Care Team Providers Care Rack Room Worker Name Role Phone Gerson Davey MD Primary Care Provider [phone] Allergies Active Allergy Reactions Criticality Noted Date [...] mg tabletIndications:Mix ed hyperlipidemia,Pandey ry arteriosclerosis in [place] artery Take 1 tablet (40 mg total) [...] Old myocardial infarction 05/19/2014 Overview (10/20/2016): Old [place] (myocardial infarction) History of coronary artery bypass surgery 2013 Overview (03/31/2017): AORTOCORONARY BYPASS 2006: CABG X 4 (GARCIA to LAD, SVG to Om2, left radial T-graft sequentially to ramus and D1) Multiple-type hyperlipidemia 11/30/2013 Overview (10/20/2016): MIXED HYPERLIPIDEMIA Tobacco dependence syndrome 11/30/2013 Overview (10/20/2016): TOBACCO USE DISORDER Assessment & Plan (03/31/2017 4:44 PM CDT): Unable to quit smoking Coronary arteriosclerosis in [place] artery 11/30 Overview (03/31/2017): CRNRY ATHRSCL NATVE [...] bilateral carotid stenosis, asymptomatic Acute subendocardial infarction ([facility]) 11/30/2013 04/29/2021 Overview (10/20/2016): SUBENDO INFARCT, [...] on file Legal Sex 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 Gender Identity Not on file Sexual Orientation Not on file Last Filed Vital Signs Vital Sign Reading Time Taken Comments Blood Pressure 130/65 05/22/2024 11:01 AM COMMAND CENTER OFFICER Pulse 54 05/22/2024 10:25 AM COMMAND CENTER OFFICER Temperature - - Respiratory Rate 12 03/31/2017 10:08 AM CDT Oxygen Saturation 97% 05/22/2024 10:25 AM COMMAND CENTER OFFICER Inhaled Oxygen Concentration - - Weight 82.6 kg (182 lb) 05/22/2024 10:25 AM COMMAND CENTER OFFICER Height 188 cm (6' 2 ) 05/22/2024 10:25 AM COMMAND CENTER OFFICER Body Mass Index 23.37 05/22/2024 10:25 AM COMMAND CENTER OFFICER Plan of Treatment Not on file Insurance COMMERCIAL GENERIC MEDICARE ADVANTAGE [place] [id number] UHC MEDICARE ADVANTAGE [place] [id number] UHC MEDICARE ADVANTAGE [place] [id number] COMMERCIAL GENERIC Care Teams Rack Room Worker Relationship Specialty Start Date End Date Gerson Davey MD [address] [place] [id number] PCP - General Family Medicine 05/11/22
== END 2024-10-21 15:07 | disposition home or self-care (01) ==
LOC: ANHIMG 15:09
PROVIDERS: Visit Provider Nurse Practitioner Family
DX: Z12.2 Encounter for screening for malignant neoplasm of respiratory organs (principal); Z87.891 Personal history of nicotine dependence
CPT/HCPCS: 71271

== ENCOUNTER 2024-10-24 00:33 | Day surgery (SDC) | payer MEDICARE, SELFPAY ==
[2024-10-17 13:42] VITALS: BMI 24.7
--- OUTSIDE RECORDS SUMMARY | 2024-10-24 00:37 | XMS_ITS | Clinical Summary ---
Author Organization [facility] [place] [address] Address [address] [place] [address] Care Team Providers Care Quality Internship Name Role Phone Gerson Davey MD Primary Care Provider [phone] Allergies Active Allergy Reactions Criticality Noted Date [...] mg tabletIndications:Mix ed hyperlipidemia,Pandey ry arteriosclerosis in [place] artery Take 1 tablet (40 mg total) [...] Old myocardial infarction 05/19/2014 Overview (10/20/2016): Old [place] (myocardial infarction) History of coronary artery bypass surgery 2013 Overview (03/31/2017): AORTOCORONARY BYPASS 2006: CABG X 4 (GARCIA to LAD, SVG to Om2, left radial T-graft sequentially to ramus and D1) Multiple-type hyperlipidemia 11/30/2013 Overview (10/20/2016): MIXED HYPERLIPIDEMIA Tobacco dependence syndrome 11/30/2013 Overview (10/20/2016): TOBACCO USE DISORDER Assessment & Plan (03/31/2017 4:44 PM CDT): Unable to quit smoking Coronary arteriosclerosis in [place] artery 11/30 Overview (03/31/2017): CRNRY ATHRSCL NATVE [...] bilateral carotid stenosis, asymptomatic Acute subendocardial infarction ([facility]) 11/30/2013 04/29/2021 Overview (10/20/2016): SUBENDO INFARCT, SUBSEQ [...] on file Legal Sex Male 9:57 PM PATIENT CENTERED CARE SPECIALIST Gender Identity Not on file Sexual Orientation Not on file Obstetrics History Last Filed Vital Signs Vital Sign Reading Time Taken Comments Blood Pressure 130/65 05/22/2024 11:01 AM PATIENT CENTERED CARE SPECIALIST Pulse 54 05/22/2024 10:25 AM PATIENT CENTERED CARE SPECIALIST Temperature - - Respiratory Rate 12 03/31/2017 10:08 AM CDT Oxygen Saturation 97% 05/22/2024 10:25 AM PATIENT CENTERED CARE SPECIALIST Inhaled Oxygen Concentration - - Weight 82.6 kg (182 lb) 05/22/2024 10:25 AM PATIENT CENTERED CARE SPECIALIST Height 188 cm (6' 2 ) 05/22/2024 10:25 AM PATIENT CENTERED CARE SPECIALIST Body Mass Index 23.37 05/22/2024 10:25 AM PATIENT CENTERED CARE SPECIALIST Plan of Treatment Health Maintenance Due Date [...] 18, 05/03/2017 Insurance COMMERCIAL GENERIC MEDICARE ADVANTAGE [facility] MEDICARE ADVANTAGE [facility] MEDICARE ADVANTAGE COMMERCIAL GENERIC Care Teams Quality Internship Relationship Specialty Start Date End Date Gerson Davey MD [address] [id number] PCP - General Family Medicine 05/11/22
--- OUTSIDE RECORDS SUMMARY | 2024-10-24 00:37 | XMS_ITS | Referral Summary ---
Author Organization [facility] [place] [address] Address [address] [place] [address] Care Team Providers Care Rolled Seat Trimmer Name Role Phone Gerson Davey MD Primary Care Provider [phone] Allergies Active Allergy Reactions Criticality Noted Date [...] mg tabletIndications:Mix ed hyperlipidemia,Pandey ry arteriosclerosis in [place] artery Take 1 tablet (40 mg total) [...] Old myocardial infarction 05/19/2014 Overview (10/20/2016): Old [place] (myocardial infarction) History of coronary artery bypass surgery 2013 Overview (03/31/2017): AORTOCORONARY BYPASS 2006: CABG X 4 (GARCIA to LAD, SVG to Om2, left radial T-graft sequentially to ramus and D1) Multiple-type hyperlipidemia 11/30/2013 Overview (10/20/2016): MIXED HYPERLIPIDEMIA Tobacco dependence syndrome 11/30/2013 Overview (10/20/2016): TOBACCO USE DISORDER Assessment & Plan (03/31/2017 4:44 PM CDT): Unable to quit smoking Coronary arteriosclerosis in [place] artery 11/30 Overview (03/31/2017): CRNRY ATHRSCL NATVE [...] bilateral carotid stenosis, asymptomatic Acute subendocardial infarction (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 Gender Identity Not on file Sexual Orientation Not on file Last Filed Vital Signs Vital Sign Reading Time Taken Comments Blood Pressure 130/65 05/22/2024 11:01 AM CROCHET MACHINE OPERATOR Pulse 54 05/22/2024 10:25 AM CROCHET MACHINE OPERATOR Temperature - - Respiratory Rate 12 03/31/2017 10:08 AM CDT Oxygen Saturation 97% 05/22/2024 10:25 AM CROCHET MACHINE OPERATOR Inhaled Oxygen Concentration - - Weight 82.6 kg (182 lb) 05/22/2024 10:25 AM CROCHET MACHINE OPERATOR Height 188 cm (6' 2 ) 05/22/2024 10:25 AM CROCHET MACHINE OPERATOR Body Mass Index 23.37 05/22/2024 10:25 AM CROCHET MACHINE OPERATOR Plan of Treatment Not on file Insurance COMMERCIAL GENERIC MEDICARE ADVANTAGE [place] [id number] UHC MEDICARE ADVANTAGE [place] [id number] UHC MEDICARE ADVANTAGE [place] [id number] COMMERCIAL GENERIC Care Teams Rolled Seat Trimmer Relationship Specialty Start Date End Date Gerson Davey MD [address] [place] [phone] PCP - General Family Medicine 05/11/22
--- OUTSIDE RECORDS SUMMARY | 2024-10-24 00:37 | XMS_ITS | Clinical Summary ---
Author Organization [facility] Address [address] [place] [address] Care Team Providers Care Disaster Response Director Name Role Phone Yesenia Mckenzie MD Primary [...] patient's age to complete this topic Insurance [facility] GENERIC - COMMERCIAL on file Care Teams Disaster Response Director Relationship Specialty Start Date End Date Yesenia Mckenzie MD [address] [place] [address] PCP - General FAMILY PRACTICE 10/09/20
--- OUTSIDE RECORDS SUMMARY | 2024-10-24 00:37 | XMS_ITS | CONTINUITY OF CARE DOCUMENT ---
Author Name maite arora Address Unknown Organization [facility] Address [address] [place] [address] Phone [phone] Care Team Providers Care Pony Worker Name Role Phone maite arora Unavailable Unavailable
[2024-10-24 13:04] VITALS: BP 166/56; PULSE 56; RESP 16; TEMP 36.1; O2SAT 99; BMI 23.4
[2024-10-24] MEDS: LACTATED RINGERS 1,000 ML 150 ML IV CONT (13:07)
--- NOTE | 2024-10-24 13:57 | PM.HPGS ---
History of Present Illness History of Present Illness Consent: Risks, benefits, and alternatives have been discussed and questions answered. Patient agrees to proceed with procedure. Chief complaint: Personal history of colon polyps, unspecified Narrative: Cain Agarwal is a 74 year old male with colon polyp in 2020 Review of Systems Review of Systems: All systems reviewed & are unremarkable except as noted in HPI and below PMFSH Past Medical History Medical History Wheezing Chronic nasal congestion Hx of colonic polyps Skin lesions Screening for lung cancer Cellulitis of left elbow Fall from ladder Elbow pain, left Sinusitis, acute Tobacco abuse Wellness examination History of heart attack Smoking greater than 40 pack years Localized swelling, mass and lump, neck BMI 26.0-26.9,adult Encounter to establish care Epidermoid cyst of neck Colon cancer screening Thrush, oral Nocturia Osteoarthritis CAD (coronary artery disease) Bradycardia (~2018) Acute bronchitis (~2018) Small vessel coronary artery disease CAP (community acquired pneumonia) Sepsis Leukocytosis Hyperlipidemia Hypertension Surgical History Surgical History H/O excision of mass neck mass H/O shoulder surgery History of cataract extraction History of appendectomy History of vasectomy reversal Hx of total knee arthroplasty Hx of CABG (~05/2008) Family History Family History Mother Family history of malignant neoplasm Social History Social History Smoking packs per day: 1 Smoking cigarettes per day: 20.0 Years smoked: 60 Smoking pack-years: 60.00 Smoking status: Current every day smoker Tobacco type: cigars Second hand tobacco smoke exposure: Yes Alcohol intake: former Drinks per week: 0 Alcohol use details: rare Substance use: never Substance use type: does not use Do You Feel Safe in your Home?: Yes Lack of Transportation: No Lack of Food: Never True Current Housing: I Have Housing Concerned About Future Housing: No Difficulty Paying Gas/Electric Bills: No Difficulty Paying for Meds: No Currently Unemployed: No Education: High School Diploma/GED Difficulty w/ Childcare or Family Care: No Living arrangements: with family Occupation/Education: retired Additional occupation/education comments: [employer] Gender identity (if verbalized by the patient): Male Spiritual care concerns: No Meds Home Medications and Allergies Home Medications ?Medication ?Instructions ?Recorded ?Confirmed ?Type aspirin 81 mg tablet,delayed 81 mg PO DAILY 03/26/20 10/24/24 History release finasteride 5 mg tablet (Proscar) 5 mg PO DAILY 03/26/20 10/24/24 History lisinopril 40 mg tablet 40 mg PO DAILY 03/26/20 10/24/24 History rosuvastatin 40 mg tablet 40 mg PO DAILY 03/26/20 10/24/24 History nifedipine 30 mg tablet,extended 60 mg PO QPM 10/05/20 10/24/24 History release 24 hr (Procardia XL) acetaminophen 500 mg tablet 500 mg PO Q6H PRN Pain 01/08/21 10/24/24 History (Tylenol Extra Strength) albuterol sulfate 90 mcg/actuation 1 - 2 inh inhalation Q4-6H PRN 04/04/24 10/17/24 Rx aerosol inhaler shortness of breath or wheezing #8.5 grams fluticasone propionate 50 1 spray intranasal BID #48 grams 04/04/24 10/24/24 Rx mcg/actuation nasal spray,suspension (Flonase Allergy Relief) Allergies Allergy/AdvReac Type Severity Reaction Status Date / Time No Known Allergies Allergy Verified 10/24/24 13:03 Vital Signs Vital Signs - 24 hr 10/24/24 13:04 Temperature 96.9 F L Pulse Rate 56 L Respiratory Rate 16 Blood Pressure 166/56 H Pulse Oximetry 99 Oxygen Delivery Room Air Exam Const: General: comfortable and no acute distress HENMT: Face/Nose/Sinus: Normal nares present Eyes: General: appearance normal, both eyes and all related structures Neck: Neck: no JVD Resp: Auscultation: clear to auscultation bilaterally Cardio: Rate: regular rate Rhythm: regular rhythm GI: Inspection: non-distended GI Palp: Yes Soft to palpation Skin: General skin exam: normal color Neuro: Speech: normal speech Extrem: General: normal to inspection Psych: Mental Status: mental status grossly normal Assessment and Plan Assessment and plan (1) Hx of colonic polyps: Code(s): Z86.010 - Personal history of colon polyps Status: Acute Assessment and Plan: colonoscopy
--- NOTE | 2024-10-24 13:59 | WPDANESEPPF ---
Anes - Initial Pre Proc Eval Procedure: Operation Date: 10/24/24 14:00 Proposed Procedures p Colonoscopy - Chavez Anglin MD Date/Time: 10/24/24 13:59 Surgeon: Chavez Anglin MD Pre Op Diagnosis: Personal history of colon polyps, unspecified Patient Data Age: 74 Gender: M Height: 1.85 m Weight: 80.6 kg Last Vital Signs Temp 96.9 F L 10/24/24 13:04 Pulse 56 L 10/24/24 13:04 Resp 16 10/24/24 13:04 BP 166/56 H 10/24/24 13:04 Pulse Ox 99 10/24/24 13:04 O2 Del Method Room Air 10/24/24 13:04 Allergies Allergy/AdvReac Type Severity Reaction Status Date / Time No Known Allergies Allergy Verified 10/24/24 13:03 Home Medications ?Medication ?Instructions ?Recorded ?Confirmed ?Type aspirin 81 mg tablet,delayed 81 mg PO DAILY 03/26/20 10/24/24 History release finasteride 5 mg tablet (Proscar) 5 mg PO DAILY 03/26/20 10/24/24 History lisinopril 40 mg tablet 40 mg PO DAILY 03/26/20 10/24/24 History rosuvastatin 40 mg tablet 40 mg PO DAILY 03/26/20 10/24/24 History nifedipine 30 mg tablet,extended 60 mg PO QPM 10/05/20 10/24/24 History release 24 hr (Procardia XL) acetaminophen 500 mg tablet 500 mg PO Q6H PRN Pain 01/08/21 10/24/24 History (Tylenol Extra Strength) albuterol sulfate 90 mcg/actuation 1 - 2 inh inhalation Q4-6H PRN 04/04/24 10/17/24 Rx aerosol inhaler shortness of breath or wheezing #8.5 grams fluticasone propionate 50 1 spray intranasal BID #48 grams 04/04/24 10/24/24 Rx mcg/actuation nasal spray,suspension (Flonase Allergy Relief) Patient hx anesthesia problems: none Family hx anesthesia problems: none Results Review: All pre-operative results and documents have been reviewed as part of the pre-operative evaluation. PMFSH Past Medical History Medical History (Reviewed 10/09/24 @ 13:00 by Santos Sorenson [facility]) Wheezing Chronic nasal congestion Hx of colonic polyps Skin lesions Screening for lung cancer Cellulitis of left elbow Fall from ladder Elbow pain, left Sinusitis, acute Tobacco abuse Wellness examination History of heart attack Smoking greater than 40 pack years Localized swelling, mass and lump, neck BMI 26.0-26.9,adult Encounter to establish care Epidermoid cyst of neck Colon cancer screening Thrush, oral Nocturia Osteoarthritis CAD (coronary artery disease) Bradycardia (~2018) Acute bronchitis (~2019) Small vessel coronary artery disease CAP (community acquired pneumonia) Sepsis Leukocytosis Hyperlipidemia Hypertension Surgical History Surgical History H/O excision of mass neck mass H/O shoulder surgery History of cataract extraction History of appendectomy History of vasectomy reversal Hx of total knee arthroplasty Hx of CABG (~05/2008) Family History Family History Mother Family history of malignant neoplasm Social History Social History Smoking packs per day: 1 Smoking cigarettes per day: 20.0 Years smoked: 60 Smoking pack-years: 60.00 Smoking status: Current every day smoker Tobacco type: cigars Second hand tobacco smoke exposure: Yes Alcohol intake: former Drinks per week: 0 Alcohol use details: rare Substance use: never Substance use type: does not use Do You Feel Safe in your Home?: Yes Lack of Transportation: No Lack of Food: Never True Current Housing: I Have Housing Concerned About Future Housing: No Difficulty Paying Gas/Electric Bills: No Difficulty Paying for Meds: No Currently Unemployed: No Education: High School Diploma/GED Difficulty w/ Childcare or Family Care: No Living arrangements: with family Occupation/Education: retired Additional occupation/education comments: [employer] Gender identity (if verbalized by the patient): Male Spiritual care concerns: No Anes - Eval Final PreProcedure Day of Procedure 10/24/24 13:59 Patient weight: normal Heart: regular rate and rhythm Lungs: clear to auscultation Airway: Mallampati scale class II Neurological: alert and oriented Last oral intake: >/= 8 hours ASA classification: III Emergent: no Anesthetic plan: proceed Anesthesia type and monitoring: general GIVS and standard monitoring Results Review: All pre-operative results and documents have been reviewed as part of the pre-operative evaluation. Informed Consent: The patient's anesthetic plan and its attendant risks and benefits were discussed with the patient/family/POA. Questions were solicited and answers provided to the satisfaction of the patient/family/POA.
[2024-10-24 14:18] VITALS: BP 132/42; PULSE 42; RESP 18; O2SAT 98
[2024-10-24 14:28] VITALS: BP 157/46; PULSE 42; RESP 20; O2SAT 100
[2024-10-24 14:38] VITALS: BP 161/42; PULSE 43; RESP 20; O2SAT 100
== END 2024-10-24 14:55 | disposition home or self-care (01) ==
PROVIDERS: PCP Nurse Practitioner Family; Visit Provider Internal Medicine Gastroenterology
PROC: 0DJD8ZZ Inspection of Lower Intestinal Tract, Via Natural or Artificial Opening Endoscopic (ICD-10-PCS; CPT 45378; principal; 2024-10-24 14:00)
DX: Z12.11 Encounter for screening for malignant neoplasm of colon (principal); D12.3 Benign neoplasm of transverse colon; K63.5 Polyp of colon; K57.30 Diverticulosis of large intestine without perforation or abscess without bleeding; K64.8 Other hemorrhoids; F17.290 Nicotine dependence, other tobacco product, uncomplicated
CPT/HCPCS: 45385; 88305; J1596; J2003; J2704; J7120

== ENCOUNTER 2024-11-21 09:27 | Outpatient (CLI) | payer MEDICARE, SELFPAY ==
--- NOTE | 2024-11-21 09:33 | ECG_ITS ---
Test Date: 2024-11-21 09:37:07 Measurements Intervals [place] Rate: 54 P: 62 MT: 179 QRS: 60 QRSD: 112 T: 71 QT: 481 QTc: 456 Interpretive Statements SINUS BRADYCARDIA LEFT VENTRICULAR HYPERTROPHY AND ST-T CHANGE [VOLTAGE CRITERIA PLUS ST/T ABNORMALITY] No previous ECG available for comparison Electronically Signed On 11-21-2024 10:12:23 CDT by Lissett Griffiths M.D.
--- OUTSIDE RECORDS SUMMARY | 2024-11-21 09:48 | XMS_ITS | Clinical Summary ---
Author Organization [facility] [address] Address [address] [place] [address] Care Team Providers Care Hired Hand Name Role Phone Gerson Davey MD Primary Care Provider [phone] Allergies Active Allergy Reactions Criticality Noted Date [...] mg tabletIndications:Mix ed hyperlipidemia,Pandey ry arteriosclerosis in [place] artery Take 1 tablet (40 mg total) [...] Unable to quit smoking Coronary arteriosclerosis in [place] artery 11/30 Overview (03/31/2017): CRNRY ATHRSCL NATVE [...] bilateral carotid stenosis, asymptomatic Acute subendocardial infarction ([facility]) 11/30/2013 04/29/2021 Overview (10/20/2016): SUBENDO INFARCT, SUBSEQ [...] on file Legal Sex Male 9:57 PM 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 HEALTH AND 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 INTERN Gender Identity Not on file Sexual Orientation Not on file Obstetrics History Last Filed Vital Signs Vital Sign Reading Time Taken Comments Blood Pressure 130/65 05/22/2024 11:01 AM 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 HEALTH AND SAFETY INTERN Pulse 54 05/22/2024 10:25 AM 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 HEALTH AND SAFETY INTERN Temperature - - Respiratory Rate 12 03/31/2017 10:08 AM CDT Oxygen Saturation 97% 05/22/2024 10:25 AM 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 HEALTH AND SAFETY INTERN Inhaled Oxygen Concentration - - Weight 82.6 kg (182 lb) 05/22/2024 10:25 AM 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 HEALTH AND SAFETY INTERN Height 188 cm (6' 2 ) 05/22/2024 10:25 AM 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 HEALTH AND SAFETY INTERN Body Mass Index 23.37 05/22/2024 10:25 AM 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 HEALTH AND SAFETY INTERN Plan of Treatment Health Maintenance Due Date [...] 18, 05/03/2017 Insurance COMMERCIAL GENERIC MEDICARE ADVANTAGE [facility] MEDICARE ADVANTAGE [facility] MEDICARE ADVANTAGE COMMERCIAL GENERIC Care Teams Hired Hand Relationship Specialty Start Date End Date Gerson Davey MD [address] [id number] PCP - General Family Medicine 05/11/22
--- OUTSIDE RECORDS SUMMARY | 2024-11-21 09:48 | XMS_ITS | Referral Summary ---
Author Organization [facility] [address] Address [address] [place] [address] Care Team Providers Care Lens Cutter Name Role Phone Gerson Davey MD Primary Care Provider [phone] [phone] Allergies Active Allergy Reactions Criticality Noted Date [...] mg tabletIndications:Mix ed hyperlipidemia,Pandey ry arteriosclerosis in [place] artery Take 1 tablet (40 mg total) [...] Old myocardial infarction 05/19/2014 Overview (10/20/2016): Old [place] (myocardial infarction) History of coronary artery bypass surgery 2013 Overview (03/31/2017): AORTOCORONARY BYPASS 2006: CABG X 4 (GARCIA to LAD, SVG to Om2, left radial T-graft sequentially to ramus and D1) Multiple-type hyperlipidemia 11/30/2013 Overview (10/20/2016): MIXED HYPERLIPIDEMIA Tobacco dependence syndrome 11/30/2013 Overview (10/20/2016): TOBACCO USE DISORDER Assessment & Plan (03/31/2017 4:44 PM CDT): Unable to quit smoking Coronary arteriosclerosis in [place] artery 11/30 Overview (03/31/2017): CRNRY ATHRSCL NATVE [...] carotid stenosis, asymptomatic Acute subendocardial infarction ([facility]) 11/30/2013 04/29/2021 Overview (10/20/2016): SUBENDO [...] on file Legal Sex Male 9:57 PM CATERER'S AIDE Gender Identity Not on file Sexual Orientation Not on file Last Filed Vital Signs Vital Sign Reading Time Taken Comments Blood Pressure 130/65 05/22/2024 11:01 AM CATERER'S AIDE Pulse 54 05/22/2024 10:25 AM CATERER'S AIDE Temperature - - Respiratory Rate 12 03/31/2017 10:08 AM CDT Oxygen Saturation 97% 05/22/2024 10:25 AM CATERER'S AIDE Inhaled Oxygen Concentration - - Weight 82.6 kg (182 lb) 05/22/2024 10:25 AM CATERER'S AIDE Height 188 cm (6' 2 ) 05/22/2024 10:25 AM CATERER'S AIDE Body Mass Index 23.37 05/22/2024 10:25 AM CATERER'S AIDE Plan of Treatment Not on file Insurance COMMERCIAL GENERIC MEDICARE ADVANTAGE [place] [id number] UHC MEDICARE ADVANTAGE [place] [id number] UHC MEDICARE ADVANTAGE [place] [id number] COMMERCIAL GENERIC Care Teams Lens Cutter Relationship Specialty Start Date End Date Gerson Davey MD [address] [place] [id number] PCP - General Family Medicine 05/11/22
--- OUTSIDE RECORDS SUMMARY | 2024-11-21 09:48 | XMS_ITS | Clinical Summary ---
Author Organization [facility] Address [address] [place] [id number] Care Team Providers Care Bulk Pigment Reducer Name Role Phone Yesenia Mckenzie MD Primary [...] Td Vaccines ( 1 - Tdap) 01/18/1968 Pneumococcal Vaccine: 50+ Ye ars (1 of 1 - PCV) 1999 Zoster Vaccines (1 of 2) 1999 Annual Medicare Wellness Visit 2014 RSV Immunization or 60+ Years (1 [...] patient's age to complete this topic Insurance [facility] GENERIC - COMMERCIAL on file Care Teams Bulk Pigment Reducer Relationship Specialty Start Date End Date Yesenia Mckenzie MD [address] [place] [address] PCP - General FAMILY PRACTICE 10/09/20
--- OUTSIDE RECORDS SUMMARY | 2024-11-21 09:48 | XMS_ITS | CONTINUITY OF CARE DOCUMENT ---
Author Name maite arora Address Unknown Organization [facility] Office Address [address] [place] [address] Phone [phone] Care Team Providers Care Pilot Plant Supervisor Name Role Phone maite arora Unavailable Unavailable
== END 2024-11-21 09:28 | disposition home or self-care (01) ==
LOC: ANHSURGERY 09:31
PROVIDERS: PCP Nurse Practitioner Family; Visit Provider Otolaryngology
DX: I11.9 Hypertensive heart disease without heart failure (principal); R00.1 Bradycardia, unspecified
CPT/HCPCS: 93005

== ENCOUNTER 2024-11-25 00:11 | Day surgery (SDC) | payer MEDICARE, SELFPAY ==
[2024-11-20 14:55] VITALS: BMI 24.0
--- NOTE | 2024-11-20 15:24 | PC.NURSE ---
Report to the Outpatient Waiting Room, entrance under the green pavilion located off [facility], at time ____10:45AM___ on date ___11/25/24____. Planned Procedure Time: __12:45PM .? Time changes happen often and if your time is changed the preop area will call you the afternoon before. - You and your visitor will be asked to self-screen and do not enter if you have any COVID symptoms. Please call surgeon if you need to reschedule. - A mask is optional within the hospital at this time. Patients may have clear liquids (water, carbonated beverages, clear teas, apple juice) until 3 hours prior to surgery (9:45AM) with a maximum of 20 ounces. - No food from midnight until time of surgery and no smoking, or chewing tobacco (or any form of nicotine). No chewing gum, candy or mints. Take only the following medications with a SIP of water on the morning of surgery: ____ALBUTEROL INHALER NEEDED DO NOT STOP ANY OF YOUR OTHER PRESCRIPTION MEDICATIONS PRIOR TO SURGERY EXCEPT THE FOLLOWING Hold all vitamins and supplements for 3 days per anesthesiologist. Medications to discontinue per physician ___HOLD ASPIRIN 5 DAYS PRE-OP PER DR BAILEY. Date to take last dose____11/19/24-PATIENT TOOK TODAY. INSTRUCT TO HOLD STARTING NOW/MESSAGE LEFT FOR MD. Please no make-up, nail gabonese, hairspray, perfume, deodorant, or body powder the day of surgery.? No jewelry (including any body piercings) or valuables the day of surgery, leave them at home.? Please take a shower or bath the night before, or the morning of, surgery with an antibacterial soap.? Wear comfortable, loose fitting clothing.? - Jewelry must be removed prior to entering the operating room.? Rings and piercings that are not removed may be cut off. - The hospital will not accept responsibility for valuables.? - Please leave all valuables, including medications, at home the day of surgery. If you are going home after surgery, a licensed customer service driver must drive you home.? - NO public transportation without another adult if you receive anesthesia. - We recommend that an adult stay with you for 24 hours following discharge. - We also recommend that you do not drive, make important decision, drink alcoholic beverages, or take any drugs that were not prescribed by your health care provider for at least 24 hours after your discharge time. Follow any additional instructions given to you from your surgeon. Telephone instructions given to ___PATIENT and asked if any additional questions and then verbalized understanding. Patient advised to call surgeon office or pre surgery nurse liaison [phone] if any additional questions.
[2024-11-25] VITALS (12 sets, daily range): BP systolic 145–183; BP diastolic 45–56; PULSE 51–70; RESP 12–20; TEMP 36.6–36.9; O2SAT 94–100
--- OUTSIDE RECORDS SUMMARY | 2024-11-25 00:14 | XMS_ITS | Referral Summary ---
Author Organization [facility] [address] Address [address] [place] [address] Care Team Providers Care Clothing Presser Name Role Phone Gerson Davey MD Primary Care Provider [phone] Allergies Active Allergy Reactions Criticality Noted Date [...] mg tabletIndications:Mix ed hyperlipidemia,Pandey ry arteriosclerosis in [place] artery Take 1 tablet (40 mg total) [...] Unable to quit smoking Coronary arteriosclerosis in [place] artery 11/30 Overview (03/31/2017): CRNRY ATHRSCL NATVE [...] bilateral carotid stenosis, asymptomatic Acute subendocardial infarction ([facility]) 11/30/2013 04/29/2021 Overview (10/20/2016): SUBENDO INFARCT, SUBSEQ [...] on file Legal Sex Male 9:57 PM LAND LEASING EXAMINER Gender Identity Not on file Sexual Orientation Not on file Last Filed Vital Signs Vital Sign Reading Time Taken Comments Blood Pressure 130/65 05/22/2024 11:01 AM LAND LEASING EXAMINER Pulse 54 05/22/2024 10:25 AM LAND LEASING EXAMINER Temperature - - Respiratory Rate 12 03/31/2017 10:08 AM CDT Oxygen Saturation 97% 05/22/2024 10:25 AM LAND LEASING EXAMINER Inhaled Oxygen Concentration - - Weight 82.6 kg (182 lb) 05/22/2024 10:25 AM LAND LEASING EXAMINER Height 188 cm (6' 2 ) 05/22/2024 10:25 AM LAND LEASING EXAMINER Body Mass Index 23.37 05/22/2024 10:25 AM LAND LEASING EXAMINER Plan of Treatment Not on file Insurance COMMERCIAL GENERIC MEDICARE ADVANTAGE [place] [id number] UHC MEDICARE ADVANTAGE [place] [id number] UHC MEDICARE ADVANTAGE [place] [id number] COMMERCIAL GENERIC Care Teams Clothing Presser Relationship Specialty Start Date End Date Gerson Davey MD [address] [place] [id number] PCP - General Family Medicine 05/11/22
--- OUTSIDE RECORDS SUMMARY | 2024-11-25 00:14 | XMS_ITS | CONTINUITY OF CARE DOCUMENT ---
Author Name maite arora Address Unknown Organization [facility] Office Address [address] [place] [address] Phone [phone] Care Team Providers Care Teacher Of The Deaf Name Role Phone maite arora Unavailable Unavailable
--- OUTSIDE RECORDS SUMMARY | 2024-11-25 00:14 | XMS_ITS | Clinical Summary ---
Author Organization [facility] Address [address] [place] [address] Care Team Providers Care Credentialer Name Role Phone Yesenia Mckenzie MD Primary [...] patient's age to complete this topic Insurance [facility] GENERIC - COMMERCIAL on file Care Teams Credentialer Relationship Specialty Start Date End Date Yesenia Mckenzie MD [address] [place] [address] PCP - General FAMILY PRACTICE 10/09/20
--- OUTSIDE RECORDS SUMMARY | 2024-11-25 00:14 | XMS_ITS | Clinical Summary ---
Author Organization [facility] [address] Address [address] [place] [address] Care Team Providers Care Cocoa Bean Roaster Name Role Phone Gerson Davey MD Primary Care Provider [phone] Allergies Active Allergy Reactions Criticality Noted Date [...] mg tabletIndications:Mix ed hyperlipidemia,Pandey ry arteriosclerosis in [place] artery Take 1 tablet (40 mg total) [...] Old myocardial infarction 05/19/2014 Overview (10/20/2016): Old [place] (myocardial infarction) History of coronary artery bypass surgery 2013 Overview (03/31/2017): AORTOCORONARY BYPASS 2006: CABG X 4 (GARCIA to LAD, SVG to Om2, left radial T-graft sequentially to ramus and D1) Multiple-type hyperlipidemia 11/30/2013 Overview (10/20/2016): MIXED HYPERLIPIDEMIA Tobacco dependence syndrome 11/30/2013 Overview (10/20/2016): TOBACCO USE DISORDER Assessment & Plan (03/31/2017 4:44 PM CDT): Unable to quit smoking Coronary arteriosclerosis in [place] artery 11/30 Overview (03/31/2017): CRNRY ATHRSCL NATVE [...] bilateral carotid stenosis, asymptomatic Acute subendocardial infarction ([facility]) 11/30/2013 04/29/2021 Overview (10/20/2016): SUBENDO [...] on file Legal Sex Male 9:57 PM PODODERMATOLOGIST Gender Identity Not on file Sexual Orientation Not on file Obstetrics History Last Filed Vital Signs Vital Sign Reading Time Taken Comments Blood Pressure 130/65 05/22/2024 11:01 AM PODODERMATOLOGIST Pulse 54 05/22/2024 10:25 AM PODODERMATOLOGIST Temperature - - Respiratory Rate 12 03/31/2017 10:08 AM CDT Oxygen Saturation 97% 05/22/2024 10:25 AM PODODERMATOLOGIST Inhaled Oxygen Concentration - - Weight 82.6 kg (182 lb) 05/22/2024 10:25 AM PODODERMATOLOGIST Height 188 cm (6' 2 ) 05/22/2024 10:25 AM PODODERMATOLOGIST Body Mass Index 23.37 05/22/2024 10:25 AM PODODERMATOLOGIST Plan of Treatment Health Maintenance Due Date [...] 18, 05/03/2017 Insurance COMMERCIAL GENERIC [place] [address] [facility] MEDICARE ADVANTAGE [facility] MEDICARE ADVANTAGE COMMERCIAL GENERIC Care Teams Cocoa Bean Roaster Relationship Specialty Start Date End Date Gerson Davey MD [address] [id number] PCP - General Family Medicine 05/11/22
--- NOTE | 2024-11-25 07:17 | WPDHPUPDATE1 ---
History and Physical Update Update Date/Time: 11/25/24 07:17 History and Physical has been reviewed, including an updated exam of the patient. There are NO changes in the patient's condition. Risks, benefits, and alternatives have been discussed and questions answered. Patient agrees to proceed with procedure.
[2024-11-25] MEDS: LACTATED RINGERS 1,000 ML 30 ML IV CONT ×2 (11:30→15:27)
[2024-11-25] MEDS: ACETAMINOPHEN 500 MG TABLET 1000 MG PO (11:30)
--- NOTE | 2024-11-25 12:48 | WPDANESEPPF ---
Anes - Initial Pre Proc Eval Procedure: Operation Date: 11/25/24 13:00 Proposed Procedures p Endoscopic Assisted Septoplasty, - Godfrey Lockwood MD s Bilateral Inferior Turbinate Reduction with Outfracture - Godfrey Lockwood MD Date/Time: 11/25/24 12:48 Surgeon: Godfrey Lockwood MD Pre Op Diagnosis: deviated nasal septum,hypertrophy nasal turbinates Patient Data Age: 74 Gender: M Height: 1.88 m Weight: 83.4 kg Last Vital Signs Temp 36.9 C 11/25/24 11:30 Pulse 53 L 11/25/24 11:30 Resp 14 11/25/24 11:30 BP 176/54 H 11/25/24 11:30 Pulse Ox 96 11/25/24 11:30 O2 Del Method Room Air 11/25/24 11:30 Allergies Allergy/AdvReac Type Severity Reaction Status Date / Time No Known Allergies Allergy Verified 11/25/24 11:27 Home Medications ?Medication ?Instructions ?Recorded ?Confirmed ?Type aspirin 81 mg tablet,delayed 81 mg PO DAILY 03/26/20 11/25/24 History release finasteride 5 mg tablet (Proscar) 5 mg PO DAILY 03/26/20 11/20/24 History lisinopril 40 mg tablet 40 mg PO DAILY 03/26/20 11/20/24 History rosuvastatin 40 mg tablet 40 mg PO DAILY 03/26/20 11/20/24 History acetaminophen 500 mg tablet 1,000 mg PO Q6H PRN Pain 01/08/21 11/20/24 History (Tylenol Extra Strength) albuterol sulfate 90 mcg/actuation 1 - 2 inh inhalation Q4-6H PRN 04/04/24 11/20/24 Rx aerosol inhaler shortness of breath or wheezing #8.5 grams nifedipine 60 mg tablet,extended 60 mg PO HS 11/20/24 11/20/24 History release Patient hx anesthesia problems: none Family hx anesthesia problems: none Results Review: All pre-operative results and documents have been reviewed as part of the pre-operative evaluation. [facility] Past Medical History Medical History Wheezing Chronic nasal congestion Hx of colonic polyps Skin lesions Screening for lung cancer Cellulitis of left elbow Fall from ladder Elbow pain, left Sinusitis, acute Tobacco abuse Wellness examination History of heart attack Smoking greater than 40 pack years Localized swelling, mass and lump, neck BMI 26.0-26.9,adult Encounter to establish care Epidermoid cyst of neck Colon cancer screening Thrush, oral Nocturia Osteoarthritis CAD (coronary artery disease) Bradycardia (~2018) Acute bronchitis (~2018) Small vessel coronary artery disease CAP (community acquired pneumonia) Sepsis Leukocytosis Hyperlipidemia Hypertension Surgical History Surgical History H/O excision of mass neck mass H/O shoulder surgery History of cataract extraction History of appendectomy History of vasectomy reversal Hx of total knee arthroplasty Hx of CABG (~05/2008) Family History Family History Mother Family history of malignant neoplasm Social History Social History Smoking packs per day: 1 Smoking cigarettes per day: 20.0 Years smoked: 60 Smoking pack-years: 60.00 Smoking status: Current every day smoker Tobacco type: cigarettes Second hand tobacco smoke exposure: Yes Alcohol intake: former Drinks per week: 0 Alcohol use details: rare Substance use: never Substance use type: does not use Do You Feel Safe in your Home?: Yes Lack of Transportation: No Lack of Food: Never True Current Housing: I Have Housing Concerned About Future Housing: No Difficulty Paying Gas/Electric Bills: No Difficulty Paying for Meds: No Currently Unemployed: No Education: High School Diploma/GED Difficulty w/ Childcare or Family Care: No Living arrangements: with family Additional living arrangements comments: Occupation/Education: retired Additional occupation/education comments: [employer] Gender identity (if verbalized by the patient): Male Spiritual care concerns: No Anes - Eval Final PreProcedure Day of Procedure 11/25/24 12:48 Patient weight: normal Heart: regular rate and rhythm Lungs: clear to auscultation Airway: Mallampati scale class II Neurological: alert and oriented Last oral intake: >/= 8 hours ASA classification: III Emergent: no Anesthetic plan: proceed Anesthesia type and monitoring: general ETT and standard monitoring Results Review: All pre-operative results and documents have been reviewed as part of the pre-operative evaluation. Informed Consent: The patient's anesthetic plan and its attendant risks and benefits were discussed with the patient/family/POA. Questions were solicited and answers provided to the satisfaction of the patient/family/POA.
[2024-11-25] MEDS: ceFAZolin 2 GM/D5W 50 ML 2 GM/50 ML BAG IVPB (13:27)
[2024-11-25] MEDS: OXYMETAZOLINE HCL 0.05% NAS 15 ML BTL (*BKC) 1 SPRAY NASAL (13:42)
[2024-11-25] MEDS: LIDO 1%/EPINEPHRINE 1:100,000 50 ML VIAL INFILTRATE (13:43)
[2024-11-25] MEDS: MUPIROCIN 2% OINT 22 GM TUBE 1 APPLIC TOPICAL (15:12)
[2024-11-25] MEDS: LIDO 1%/EPINEPHRINE 1:100,000 20 ML VIAL 15 ML INFILTRATE (15:13)
--- NOTE | 2024-11-25 15:59 | W.PM.PROC2 ---
Procedure Note - Detailed Date of Procedure 11/25/24 Pre-op Diagnosis deviated nasal septum,hypertrophy nasal turbinates Post-op Diagnosis Same Procedure Performed endoscopic assisted septoplasty bilateral inferior turbinate reduction with outfracture Surgeon Godfrey Lockwood MD Anesthesia General Indications See above Findings Incredibly adherent mucosa with ossified cartilage very challenging septoplasty subcentimeter perforation in the posterior septum piece of removed cartilage placed in between the mucoperichondrial flaps Description of Procedure Patient identified consent verified in the preoperative holding area. Patient was brought to the operating room a time-out was performed. General anesthesia was induced and endotracheal tube was secured the patient's airway. The patient prepped draped position procedure confirmed 2nd time-out was performed. A total 14 cc 1% lidocaine with 1 100,000 parts epinephrine was injected in the bilateral nasal septum in and inferior turbinates. Right-sided sorry left-sided Pringle incision was made very very anterior-most and hemitransfixion type fashion. Left mucoperichondrial flap was elevated no tears right mucoperichondrial flap was at the septum was then crossed over than ostium. A right cartilage a right mucoperichondrial flap was then elevated with several tears the deviated septum was removed combination of Norris Price forceps Parmjit forceps and osteotome a large portion of the deviation was bony coming off the crest on the side to several perforations tube which were opposing in the posterior septum. The septum was then closed a piece of cartilage was placed in between the perforations with good coverage bilaterally. This closed the perforation and affect. Shaun incision was closed with 5 interrupted fast 0 fast 5 0 fast gut sutures. Turbinates reduced in the submucosal plane with microdebrider and outfractured with [place] elevator. The right nasal passage and then Archer splints were placed at the end of the procedure the right nasal passage was much more patent however anteriorly or caudally I should say on the was slightly narrowed. Patient tolerated the procedure well no complications other than a perforation posteriorly subcentimeter. Blood loss 10 cc. I performed all dictated portions of the procedure no complication. Care the patient given Anesthesiology. Estimated Blood Loss 10 Drains No Packing No Pathology None sent Complications Other complications (Posterior sub cm perforation) Condition Stable Disposition PACU [facility] Billing Surgery - Charge Forward: Surgery Billing
--- NOTE | 2024-11-25 17:22 | SUR.PHASEII ---
Dr Lockwood notified by this RN of bloody emesis. Per MD expected finding and acceptable for d/c as long as patient is not profusely draining from nose. Small amount of blood on 2x2 dressing; dressing changed. Per MD okay to d/c.
[2024-11-25] MEDS: ONDANSETRON INJ 4 MG/2 ML VIAL IV PUSH (17:33)
[2024-11-25] MEDS: hydrALAZINE HCL 20 MG/ML VIAL 10 MG IV PUSH ×2 (17:43→18:08)
== END 2024-11-25 18:45 | disposition home or self-care (01) ==
PROVIDERS: PCP Nurse Practitioner Family; Visit Provider Otolaryngology
PROC: (CPT 30520; principal; 2024-11-25 13:00)
PROC: (CPT 30520; 2024-11-25 13:00)
DX: J34.2 Deviated nasal septum (principal); J34.3 Hypertrophy of nasal turbinates; R09.81 Nasal congestion; H92.01 Otalgia, right ear; G89.18 Other acute postprocedural pain; E78.5 Hyperlipidemia, unspecified; I10 Essential (primary) hypertension; D72.829 Elevated white blood cell count, unspecified; I25.2 Old myocardial infarction; M19.90 Unspecified osteoarthritis, unspecified site; I25.10 Atherosclerotic heart disease of native coronary artery without angina pectoris; R00.1 Bradycardia, unspecified; F17.290 Nicotine dependence, other tobacco product, uncomplicated; Z79.82 Long term (current) use of aspirin; Z79.51 Long term (current) use of inhaled steroids; Z86.79 Personal history of other diseases of the circulatory system; Z80.9 Family history of malignant neoplasm, unspecified
CPT/HCPCS: 30520; 30140; A9270; J0360; J0690; J1100; J1171; J2003; J2004; J2405; J2704; J3010; J7050; J7120